=== PATIENT | male | born 1940 | race Caucasian/White ===

== ENCOUNTER 2023-10-24 11:35 | Emergency (ER) | payer MEDICARE, OTHER, SELFPAY ==
[2023-10-24] VITALS (11 sets, daily range): BP systolic 123–162; BP diastolic 66–101; PULSE 62–76; BMI 30.8
--- NOTE | 2023-10-24 12:19 | ED.GENMED ---
History of Present Illness
<Belgica Black PA-C - Last Filed: 10/24/23 16:57>
General
Chief Complaint: Dizziness
Source: patient
Exam Limitations: none
Time Seen by Provider: 10/24/23 12:17
Nursing documentation reviewed up to this point in time: agreed with
Travel History
Have you had any contact with someone who has COVID-19?: No
Do you have any symptoms of coronavirus? Fever > 100 degrees, chills, cough, shortness of breath, sore throat, loss of taste or smell, muscle aches, or headache?: No
History of Present Illness
History of Present Illness:
This is a 83 y/o male with a PMH of afib, hypertension, hyperlipidemia presenting emergency department today with dizziness/lightheadedness. Patient states that he has had this sensation for the past few weeks. Usually, this sensation will last
for few hours or a day and go away on its own. Patient states at this time, the sensation has not gone away on its own. Patient denies any sensation of the room spinning, any visual changes. Patient denies any positional component to his
symptoms. Patient states that he feels okay at rest but if he stands up or moves around the symptoms will get worse. Patient states that he is able to walk without any difficulty. Patient denies any nausea or vomiting, chest pain, shortness of
breath. Patient states that he did have a fall in which he hit his head a few months ago. Patient denies any loss of consciousness. Patient does not take any blood thinners.
Past History
<Belgica Black PA-C - Last Filed: 10/24/23 16:57>
Past History
ED Past Medical History: Arrthythmia, HTN and Hypercholesterolemia
ED Past Surgical History: Cardiac (Cardiac ablation), Orthopedic and Tonsilectomy
Patient has exhibited threatening behavior?: No
PSI?: No
Social History
Tobacco: Non-smoker
Alcohol: Occasional
Drug: None
Personal:
Living: with family
Employment: Employed
Family History
Family History: Other (reviewed and noncontributory)
Review of Systems
<Belgica Black PA-C - Last Filed: 10/24/23 16:57>
Review of Systems
All Other Systems: ROS reviewed and negative except as documented in HPI and ROS
Phy Exam
<Belgica Black PA-C - Last Filed: 10/24/23 16:57>
Physical Exam
Physical Exam:
General: Patient is well appearing and in no acute distress; non-toxic
Skin: Warm and dry, no rashes or lesions
Head: Normocephalic, atraumatic
Eyes: Sclera non-icteric. EOMs intact. PERRLA.
Cardiac: Regular rate and rhythm, no murmurs, rubs, or gallops
Peripheral Vascular: No lower extremity swelling or edema
Pulm: Normal respiratory effort, no wheezes, rales, or rhonchi
Musculoskeletal: Full range of motion of bilateral upper and lower extremities
Neuro: CN II-XII intact, no focal neurologic deficits. No dysmetria--finger to nose, heel to enriquez testing intact.
Psychiatric: Appropriate mood and affect.
NIH Stroke Score
Level of Consciousness: 0 - Alert
LOC questions: 0-Answers both correctly
LOC Commands: 0-Performs both correctly
Best Gaze: 0-Normal
Visual Wilson: 0=Normal, no visual loss
Facial palsy: 0=Normal, symmetrical
Motor - Right Arm: 0=No drift 10 seconds
Motor - Left Arm: 0=No drift 10 seconds
Motor - Right Le-No drift 5 seconds
Motor - Left Le-No drift 5 seconds
Limb Ataxia: 0-Absent
Sensation: 0-Normal
Best Language: 0-No aphasia
Dysarthria: 0-Normal
Extinction and Inattention: 0-No abnormality
Total Score:: 0
Course
<Belgica Black PA-C - Last Filed: 10/24/23 16:57>
Orders/Labs/Results
Orders:
Orders
10/24/23 11:39
EKG [Electrocardiogram (*1)] Urgent
Reason for Study: Vertigo / Dizzy
EKG- Treatment ONCE
10/24/23 12:23
Orthostatic VS- Treatment ONCE
10/24/23 12:42
Complete Blood Count/With Diff Urgent
Comprehensive Metabolic Panel Urgent
10/24/23 13:05
CT Head W/o Iv Contrast Urgent
Comment:
Reason For Exam: dizziness
10/24/23 13:33
CARDIOLOGY CONSULT Urgent
Consulting Provider: James Morales
Was physician already notified: Yes
Abnormal Lab Results
10/24/23
12:42
RBC 4.30 L 10^6/uL
(4.70-6.10)
MCH 32.1 H pg
(27.0-31.0)
Absolute Monos (auto) 0.8 H 10^3/uL
(0.1-0.6)
Monocytes % 9.9 H %
(1.7-9.3)
Chloride 109 H mmol/L
(98-107)
10/24/23 12:42
10/24/23 12:42
Vital Signs
Initial and Last Documented VS:
Initial Vital Signs
Temp Pulse Resp BP Pulse Ox
98 F 66 16 158/101 98
10/24/23 11:37 10/24/23 11:37 10/24/23 11:37 10/24/23 11:37 10/24/23 11:37
Last Documented Vital Signs
Temp Pulse Resp BP Pulse Ox
98 F 54 14 138/98 97
10/24/23 11:37 10/24/23 15:27 10/24/23 15:27 10/24/23 15:27 10/24/23 15:27
<Ashkan Cam, DO - Last Filed: 10/24/23 14:09>
Orders/Labs/Results
Orders:
Orders
10/24/23 11:39
EKG [Electrocardiogram (*1)] Urgent
Reason for Study: Vertigo / Dizzy
EKG- Treatment ONCE
10/24/23 12:23
Orthostatic VS- Treatment ONCE
10/24/23 12:42
Complete Blood Count/With Diff Urgent
Comprehensive Metabolic Panel Urgent
10/24/23 13:05
CT Head W/o Iv Contrast Urgent
Comment:
Reason For Exam: dizziness
10/24/23 13:33
CARDIOLOGY CONSULT Urgent
Consulting Provider: James Morales
Was physician already notified: Yes
Abnormal Lab Results
10/24/23
12:42
RBC 4.30 L 10^6/uL
(4.70-6.10)
MCH 32.1 H pg
(27.0-31.0)
Absolute Monos (auto) 0.8 H 10^3/uL
(0.1-0.6)
Monocytes % 9.9 H %
(1.7-9.3)
Chloride 109 H mmol/L
(98-107)
10/24/23 12:42
10/24/23 12:42
Vital Signs
Initial and Last Documented VS:
Initial Vital Signs
Temp Pulse Resp BP Pulse Ox
98 F 66 16 158/101 98
10/24/23 11:37 10/24/23 11:37 10/24/23 11:37 10/24/23 11:37 10/24/23 11:37
Last Documented Vital Signs
Temp Pulse Resp BP Pulse Ox
98 F 54 14 138/98 97
10/24/23 11:37 10/24/23 15:27 10/24/23 15:27 10/24/23 15:27 10/24/23 15:27
<Belgica Black PA-C - Last Filed: 10/24/23 16:57>
MDM/Problems Addressed
Differential Diagnosis Includes:
ddx include symptomatic bradycardia, orthostatic hypotension, BPPV, vestibular neuritis, posterior circulation stroke
MDM/Problems Addressed:
Dizziness, lightheadedness
Chronic conditions affecting care:
A-fib, hypertension, hyperlipidemia
Acute Exacerbation and/or Progression of Chronic Illness:
HTN
<Belgica Black PA-C - Last Filed: 10/24/23 16:57>
*Pulse Oximetry
Patient hypoxic: no
*Critical Care Note
Total Time (30-74mins, 75-104mins- exclusive of procedures): Not Applicable
Data Reviewed
Review of Other/Old Records Reveals: Records (Reviewed previous records, reviewed cardiology consult note from previous visit) and Discharge Summary (Reviewed discharge summary from 05/30/2022)
Source: patient and records
<MARÍA Andrade Last Filed: 10/24/23 16:57>
Patient Management
Escalation/DeEscalation of care consider admission/obs:
This is a 83 y/o male with a PMH of afib, hypertension, hyperlipidemia presenting emergency department today with dizziness/lightheadedness. Patient states that he has had this sensation for the past few weeks. It is not positional in nature.
Emergency department he is well-appearing, and his neurological exam is nonfocal. He has no nausea or vomiting. CT of the head was obtained which was negative for any acute intracranial abnormality. His CBC and CMP are unremarkable. His EKG
demonstrates early beats and some pauses, as well as PACs. Symptoms seem presyncopal in nature. Patient was evaluated in consult by cardiology, who recommended potential permanent pacer indication in the future, but he is holding off for now. He
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 I advised patient to monitor symptoms and return if he has any chest pain, shortness of breath, syncopal
episodes, or any other concerns. Patient aware of plan
ED Attending Note
<Belgica Black PA-C - Last Filed: 10/24/23 16:57>
-
Portions of this chart may have been created with voice recognition software.� Occasional wrong word or��sound alike� substitutions may have occurred due to the inherent limitations of voice recognition software.
<Ashkan Cam DO - Last Filed: 10/24/23 14:09>
ED Attending Note
Patient seen and examined by attending physician: Yes
I performed a history and physical exam of patient and discussed management with resident, I reviewed resident's note and agree with documented findings and plan of care.: Yes
ED Attending Note:
I have reviewed and agree with history and treatment plan by Belgica Black. My exam revealed 83-year-old male with no neurologic deficits. Heart rhythm irregular, monitor and EKG showing junctional rhythm with PVCs and compensatory pauses.
Suspect this is the cause for patient's weakness and lightheadedness. Discussed with Dr. Morales who will see patient in ED.
Discharge Plan
Departure
Patient Disposition: Home (Routine Discharge)
Date of Disposition: 10/24/23
Time of Disposition: 15:05
Patient with high blood pressure during this ER visit?: Yes
Condition: Good
Discharge Problem:
Lightheadedness
Instructions: Bradycardia, Dizziness, BLOOD PRESSURE
Prescriptions:
No Action
multivitamin Tablet
1 tab PO DAILY
docusate sodium 100 mg Capsule
100 mg PO BID Qty: 30 0RF
lisinopril 20 mg Tablet
20 mg PO HS Qty: 1 0RF
aspirin 325 mg Tablet
325 mg PO HS
simvastatin [Zocor] 40 mg tablet
40 mg PO HS
doxazosin [Cardura] 2 mg tablet
2 mg PO HS
Referrals:
Glen Lomas MD [Family Provider] -
Activity Restrictions/Additional Instructions:
Please call Dr. Tai's office to make a follow up appointment for next week.
Please return to the emergency department should you experience chest pain, shortness of breath, fainting spells, loss of consciousness, headache, confusion, difficulty speaking, numbness or tingling on one side the body, any other concerning signs
or symptoms to you.
Interventions
Interventions:
*Risk Screen - Suicide Last Done: 10/24/23 11:50
*General Assessment Last Done: 10/24/23 11:50
*Neglect/Abuse Screening Last Done: 10/24/23 11:50
ED- Fall Risk Assessment Last Done: 10/24/23 11:50
*ED COVID-19 Vaccine History Last Done: 10/24/23 11:50
*Nursing Disposition Last Done: 10/24/23 15:27
ED- Neurological Assessment Last Done: 10/24/23 11:50
ED- Cardiac Assessment Last Done: 10/24/23 11:50
ED Swallowing Screen Last Done: 10/24/23 11:50
Discharge Date and Time
Discharge Date/Time: 10/24/23 15:28
Print Language: SOMALI
[2023-10-24 12:57] LABS: % Basophils 0.8 % (0-2); % Eosinophils 1.8 % (0-6); % Immature Granulocytes 0.3 % (0-0.5); % Lymphocytes 38.6 % (20.5-51.1); % Monocytes 9.9 % (1.7-9.3); % Neutrophils 48.6 % (42.2-75.2); Absolute Basophils 0.1 10^3/uL (0-0.2); Absolute Eosinophils 0.1 10^3/uL (0-0.7); Absolute Monocytes 0.8 10^3/uL (0.1-0.6); Absolute Neutrophils 3.8 10^3/uL (1.4-6.5); Hematocrit 39.9 % (39.0-52.0); Hemoglobin 13.8 g/dL (13.0-18.0); Mean Corp Hgb Conc. 34.6 g/dL (33.0-37.0); Mean Corpuscular Hgb 32.1 pg (27.0-31.0); Mean Corpuscular Volume 92.8 fL (80.0-94.0); Mean Platelet Volume 8.9 fL (7.4-10.4); Nucleated Red Blood Cells % 0 % (-); Platelet Count 227 10^3/uL (130-400); Red Cell Dist. Width 13.7 % (11.5-14.5); White Blood Cell Count 7.9 10^3/uL (4.8-10.8)
[2023-10-24 13:26] LABS: ALT (SGPT) 25 U/L (0-50); AST (SGOT) 23 U/L (17-59); Albumin 3.8 g/dl (3.5-5.0); Alkaline Phosphatase 57 U/L (38-126); Blood Urea Nitrogen 17 mg/dl (9-20); Calcium 9.5 mg/dl (8.4-10.2); Carbon Dioxide 28 mmol/L (22-30); Chloride 109 mmol/L (98-107); Estimated Creatinine Clearance 79 ml/min; Glucose 83 mg/dl (70-99); Potassium 4.8 mmol/L (3.5-5.1); Sodium 139 mmol/L (135-145); Total Bilirubin 0.5 mg/dl (0.2-1.3); Total Protein 6.4 g/dl (6.3-8.2); eGFR > 60.00
--- NOTE | 2023-10-24 14:33 | CON.CAR ---
Addendum entered and electronically signed by James Morales MD 10/24/23 16:23:
I saw and examined the patient.
The Steamtable Worker's note was reviewed and I agree with the note.
Comment:
GEN: No distress, awake, Ox3
HEENT: supple, anicteric, mmm
LUNGS: CTA, no wheezes/rales
CV: Reg, S1/S2, 1/6 syst LSB, no gallop
ABD: soft, BS+, NT/ND
EXT: No edema
NEURO: Gross non-focal
SKIN: No rash
Plan:
He has a past medical history of paroxysmal atrial fibrillation status post PVI x 2, hypertension hyperlipidemia who presents with multiple episodes of dizziness. These episodes occur randomly and have occurred with more frequency. They do not
seem positional. They do not seem exertional. He has no chest pains or shortness of breath. EKG with sinus rhythm with PACs with occasional junctional escape beats. On telemetry he also has episodes of brief atrial tachycardia and sinus
bradycardia.
His blood pressure is overall stable and lab work is unremarkable including electrolytes.
I had a lengthy discussion with him. His orthostatic vital signs are also negative. His blood pressure is even somewhat elevated.
We discussed permanent pacing but he is no clear indication at this time. We agreed to continue to follow him closely. If he has clear symptomatic bradycardia we could consider permanent pacing. He likely would be a candidate for adding low-dose
beta-dashawn with his premature beats and atrial tachycardia with a permanent pacemaker. For now we will check a 7-day monitor and advised him to call if his symptoms are worsened. We will get him set up with follow-up.
Original Note:
Consultation
Consultation Request
Date/Time Consultation Requested: 10/24/23
Date/Time Consultation Performed: 10/24/23
Requesting Provider: Sofia CARTER in ER
Performing Provider: Dr. Morales
Reason for Consultation: Lightheaded, PACs
Medical History
-
History of Present Illness:
Patient came to [facility] today with lightheadedness and was found to have frequent PACs so cardiology has been consulted to see him in the ER. 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 Patient has a h/o paroxysmal Afib with ablations in 2005 and 2006. No
documented clinical recurrence of Afib and so he is not anticoagulated. Patient wears an Apple watch and previously reported that he would have periods that his Apple watch registered a HR in the 40s and that he would feel lightheaded, but no tele
strips reviewed. Patient has not worn a monitor in years. Patient says that he has been persistently lightheaded since yesterday. No syncope. No chest pain or SOB. No palpitations. He says that his Apple watch has registered HRs in the 40s and 50s
intermittently since yesterday so he saw his PCP today and was told to come to [facility]. Orthostatic VS in ER were negative. Tele and ECG reviewed by me showed PACs.
PMH:
Paroxysmal Afib
s/p PVI 2005
s/p PVI 2006
Not chronically anticoagulated due to lack of recurrence
HTN
Hyperlipidemia
Past Medical History
Past Medical History: Other (in HPI)
Past Surgical History: Cardiac (PVI 2005 and 2006), Orthopedic and Tonsilectomy
Social History
Alcohol: Other (1-2 drinks four or more times a week)
Drug: None
Personal:
Living: With Family
Employment: Retired
Family History
Family History: CAD
Allergies / Home Medications
Allergy/AdvReac Type Severity Reaction Status Date / Time
Penicillins Allergy Anaphylaxis Verified 10/24/23 11:37
-
tolerates
cefazolin
tetanus toxoid, adsorbed Allergy Sweling Verified 10/24/23 11:37
�Medication �Instructions �Recorded �Confirmed �Type
multivitamin 1 tab PO DAILY Supplement 03/25/22 08/04/22 History
simvastatin 40 mg tablet 40 mg PO HS High cholesterol 03/25/22 08/04/22 History
cetirizine 10 mg tablet (Zyrtec) 10 mg PO HS PRN allergies 04/21/22 08/04/22 History
aspirin 325 mg capsule 325 mg PO HS Blood clot 05/27/22 08/04/22 Rx
prevention/tx #30 caps
docusate sodium 100 mg capsule 100 mg PO BID #30 caps 05/27/22 08/04/22 Rx
doxazosin 2 mg tablet 2 mg PO HS Blood pressure #1 tab 05/27/22 08/04/22 Rx
lisinopril 20 mg tablet 20 mg PO HS Blood pressure #1 tab 05/27/22 08/04/22 Rx
acetaminophen 325 mg tablet 650 mg PO PRN PRN Pain 08/02/22 08/04/22 History
(Tylenol)
Review of Systems
-
History Source: Patient and Family ( sitting bedside and helping with HPI)
All other systems: Negative unless noted
Physical Exam
Vital Signs
Temp Pulse Resp BP Pulse Ox
98 F 58 17 123/66 97
10/24/23 11:37 10/24/23 14:14 10/24/23 14:14 10/24/23 13:00 10/24/23 13:30
GEN: NAD. AAOx3
HEENT: EOMI, MMM
LUNGS: CTA B/L, no wheezes or rales
CV: Reg, S1/S2, no murmur
ABD: soft, BS+, NT, ND
EXT: No clubbing, cyanosis, lesions or edema B/L
NEURO: Gross non-focal
SKIN: Warm, dry and pink. No rash
Lab Results
10/24/23 12:42
10/24/23 12:42
Impression / Plan
-
PCP: Dr. Lomas
Cardiology: Dr. Howell
Impression:
Lightheaded
Sinus rhythm with frequent PACs
Paroxysmal Afib
s/p PVI 2005
s/p PVI 2006
Not chronically anticoagulated due to lack of recurrence
HTN
Hyperlipidemia
Echo 05/02/22: EF 60-65%, normal RV size and function, mild MR, no /AI
Plan:
-Patient came to [facility] today with lightheadedness and was found to have frequent PACs so cardiology has been consulted to see him in the ER. 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 Patient has a h/o paroxysmal Afib with ablations in 2005 and 2006. No
documented clinical recurrence of Afib and so he is not anticoagulated. Patient wears an Apple watch and previously reported that he would have periods that his Apple watch registered a HR in the 40s and that he would feel lightheaded, but no tele
strips reviewed. Patient has not worn a monitor in years. Patient says that he has been persistently lightheaded since yesterday. No syncope. No chest pain or SOB. No palpitations. He says that his Apple watch has registered HRs in the 40s and 50s
intermittently since yesterday so he saw his PCP today and was told to come to [facility]. Orthostatic VS in ER were negative. Tele and ECG reviewed by me showed PACs.
-Patient is not orthostatic. Patient is HTN and took his usual doses of lisinopril 20 mg daily and Cardura 2 mg daily last night. Would not change BP meds at this time.
-Tele and ECG reviewed and he has PACs that are frequent at times. Talked with patient that his PACs might be the cause of his symptoms. Patient agreeable to checking a 7 day CAM monitor.
-No high grade heart block seen on tele
-Would not add BB/CCB at this time due to slow HRs at times.
-Patient with known paroxysmal Afib, but he is not chronically anticoagulated due to lack of clinical recurrence of Afib and by his own choice. No changes for now.
--- NOTE | 2023-10-24 14:37 | EDRN ---
the pt became tachycardic in the 140's and then the pts HR dropped to the 30's and then came back up to the 60's in NSR, this RN notified the provider Belgica Black
== END 2023-10-24 15:28 | disposition home or self-care (01) ==
LOC: EMR 11:35
PROVIDERS: Physician Assistant; CONSULT PHYSICIAN Internal Medicine Cardiovascular Disease; EMERGENCY PHYSICIAN Emergency Medicine; FAMILY PHYSICIAN Family Medicine
DX: R42 Dizziness and giddiness (principal); I48.91 Unspecified atrial fibrillation; I10 Essential (primary) hypertension; E78.00 Pure hypercholesterolemia, unspecified; Z79.899 Other long term (current) drug therapy; Z82.49 Family history of ischemic heart disease and other diseases of the circulatory system; Z83.49 Family history of other endocrine, nutritional and metabolic diseases
CPT/HCPCS: 99284; 70450; 80053; 85025; 93005

== ENCOUNTER → 2023-12-29 12:09 | Outpatient (REF) | payer MEDICARE, OTHER, SELFPAY ==
[2023-12-29 13:19] LABS: Urine Albumin Negative (Neg - Trace); Urine Bilirubin Negative (Negative); Urine Character Clear (Clear); Urine Color Yellow; Urine Glucose Negative (Negative); Urine Ketone Negative (Negative); Urine Leukocyte Negative (Negative); Urine Nitrite Negative (Negative); Urine Occult Blood Negative (Negative); Urine Urobilinogen Negative (Neg - 1+); Urine pH 6.5 (5.0-9.0)
[2023-12-29 13:25] LABS: % Immature Granulocytes 0.2 % (0-0.5); % Lymphocytes 36.5 % (20.5-51.1); % Monocytes 8.9 % (1.7-9.3); % Neutrophils 53.4 % (42.2-75.2); Absolute Basophils 0.1 10^3/uL (0-0.2); Absolute Monocytes 0.7 10^3/uL (0.1-0.6); Absolute Neutrophils 4.4 10^3/uL (1.4-6.5); Hematocrit 41.3 % (39.0-52.0); Hemoglobin 14.4 g/dL (13.0-18.0); Mean Corp Hgb Conc. 34.9 g/dL (33.0-37.0); Mean Corpuscular Hgb 32.3 pg (27.0-31.0); Mean Corpuscular Volume 92.6 fL (80.0-94.0); Mean Platelet Volume 8.9 fL (7.4-10.4); Nucleated Red Blood Cells % 0 % (-); Platelet Count 266 10^3/uL (130-400); Red Blood Cell Count 4.46 10^6/uL (4.70-6.10); Red Cell Dist. Width 12.7 % (11.5-14.5); White Blood Cell Count 8.2 10^3/uL (4.8-10.8)
[2023-12-29 13:50] LABS: ALT (SGPT) 27 U/L (0-50); AST (SGOT) 25 U/L (17-59); Alkaline Phosphatase 73 U/L (38-126); Blood Urea Nitrogen 18 mg/dl (9-20); Calcium 9.4 mg/dl (8.4-10.2); Carbon Dioxide 24 mmol/L (22-30); Chloride 106 mmol/L (98-107); Glucose 95 mg/dl (70-99); HDL Cholesterol 64 mg/dl; LDL Cholesterol, Calculated 112 mg/dl; Potassium 4.9 mmol/L (3.5-5.1); Sodium 136 mmol/L (135-145); Total Cholesterol 185 mg/dl (50-199); Total Protein 6.6 g/dl (6.3-8.2); Triglyceride 47 mg/dl (10-149); Very Low Density Lipoprotein 9 mg/dl (0-30); eGFR > 60.00
== END ==
LOC: REG 12:09
PROVIDERS: ATTENDING PHYSICIAN Family Medicine
DX: E78.5 Hyperlipidemia, unspecified (principal); I10 Essential (primary) hypertension; R42 Dizziness and giddiness
CPT/HCPCS: 36415; 80053; 80061; 81003; 85025

== ENCOUNTER 2024-01-01 03:41 | Inpatient (IN) | payer MEDICARE, OTHER, SELFPAY ==
[2023-12-31 22:52] VITALS: BP 159/103
--- NOTE | 2023-12-31 23:08 | ED.GENMED ---
History of Present Illness
<DAMARI Solo - Last Filed: 01/01/24 02:32>
General
Chief Complaint: Abdominal Symptoms
Source: patient
Exam Limitations: none
Time Seen by Provider: 12/31/23 22:58
History of Present Illness
History of Present Illness:
This is a 83 year old male that comes in with c/o constipation and abd pain. States that he has been constipated for the past 3 days. States that know he has this hernia that popped out and he has lower abd pain. States that he has tried Dulcolax,
Glycerin suppository, hot tea and prunes. Nothing is working. State that he was also dizzy. Denies any fever, chills, chest pain, SOB, nausea, vomiting, diarrhea, headache, urinary burning.
Past History
<DAMARI Solo - Last Filed: 01/01/24 02:32>
Past History
ED Past Medical History: Arrthythmia (Atrial fib), HTN, Hypercholesterolemia and Other (Dizziness, Constipation, )
ED Past Surgical History: Cardiac (Cardiac ablation), Orthopedic (Left knee replacement), Tonsilectomy and Other (Sinus surgery)
Patient has exhibited threatening behavior?: No
PSI?: No
Social History
Tobacco: Former smoker
Alcohol: Occasional
Drug: None
Personal:
Living: with family
Employment: Employed
Family History
Family History: Other (reviewed and noncontributory)
Review of Systems
<DAMARI Solo - Last Filed: 01/01/24 02:32>
Review of Systems
All Other Systems: ROS reviewed and negative except as documented in HPI and ROS
Constitutional: Reports no symptoms; Denies fever or chills
EENT: Reports no symptoms
Respiratory: Reports no symptoms; Denies cough or trouble breathing
Cardiac: Reports no symptoms; Denies chest pain
ABD/GI: Reports abdominal pain and constipated; Denies nausea, vomiting or diarrhea
: Reports no symptoms; Denies dysuria, frequency or urgency
Musculoskeletal: Reports no symptoms
Skin: Reports no symptoms
Neurological: Reports dizzy; Denies headache
Psychiatric: Reports no symptoms
Phy Exam
<DAMARI Solo - Last Filed: 01/01/24 02:32>
General Physical Exam
General Presentation: mild distress
General age: appears stated age
General Skin: warm and dry
General Habitus: elderly
General Mental: alert
General Hydration: appears well hydrated
ENT Exam
ENT Exam: TM's normal, pharynx normal and neck supple
Eye Exam
Eye Exam: EOMI
Cardiovascular Exam
Cardiovascular Exam: regular rate/rhythm, no edema and normal peripheral pulses
Pulmonary Exam
Pulmonary Exam: lungs clear, no respiratory distress, no rales, chest non tender, no crackles, no rhonchi, no wheezing and no cough
Gastrointestinal Exam
Gastrointestinal Exam: no pulsatile mass, tender (LLQ hard palpable mass, Attempted to reduce without success. ) and other (Hypoactive bowel sounds)
Musculoskeletal Exam
Musculoskeletal Exam: full ROM and no edema
Skin Exam
Skin Exam: normal color, warm/dry, no rash and no petechia
Psychiatric Exam
Psychiatric Exam: normal mood/affect
Course
<DAMARI Solo - Last Filed: 01/01/24 02:32>
Orders/Labs/Results
Orders:
Orders
12/31/23 23:06
Complete Blood Count/With Diff Urgent
Comprehensive Metabolic Panel Urgent
Lactic Acid Urgent
0.9% Sodium Chloride 1000 ml [Nss] 1,000 ml IV BOLUS
01/01/24 00:00
CT Abd/pelvis W Iv Cont Urgent
Reason For Exam: genaralized abd pain. LLQ hernia
01/01/24 01:41
Fentanyl Citrate/Pf [Sublimaze] 75 mcg IV NOW STA
01/01/24 01:42
Fentanyl Citrate/Pf [Sublimaze] 100 mcg .ROUTE .STK-MED ONE
01/01/24 02:03
Fentanyl Citrate/Pf [Sublimaze] 50 mcg IV NOW STA
01/01/24 02:21
Fentanyl Citrate/Pf [Sublimaze] 50 mcg IV NOW STA
Abnormal Lab Results
01/01/24
00:25
WBC 11.8 H 10^3/uL
(4.8-10.8)
RBC 4.15 L 10^6/uL
(4.70-6.10)
Hct 37.3 L %
(39.0-52.0)
MCH 32.3 H pg
(27.0-31.0)
Absolute Neuts (auto) 8.0 H 10^3/uL
(1.4-6.5)
Absolute Monos (auto) 1.1 H 10^3/uL
(0.1-0.6)
Sodium 134 L mmol/L
(135-145)
Lactic Acid 0.6 L mmol/L
(0.7-2.0)
Total Protein 6.2 L g/dl
(6.3-8.2)
01/01/24 00:25
01/01/24 00:25
Leukocytosis, Lactic acid normal.
Vital Signs
Initial and Last Documented VS:
Initial Vital Signs
Temp Pulse Resp BP Pulse Ox
99.1 F 74 16 159/103 95
12/31/23 22:52 12/31/23 22:52 12/31/23 22:52 12/31/23 22:52 12/31/23 22:52
Last Documented Vital Signs
Temp Pulse Resp BP Pulse Ox
99.1 F 86 22 181/101 95
12/31/23 22:52 01/01/24 02:05 01/01/24 02:05 01/01/24 02:05 01/01/24 02:05
<Jairo Green MD - Last Filed: 01/01/24 02:25>
Orders/Labs/Results
Orders:
Orders
12/31/23 23:06
Complete Blood Count/With Diff Urgent
Comprehensive Metabolic Panel Urgent
Lactic Acid Urgent
0.9% Sodium Chloride 1000 ml [Nss] 1,000 ml IV BOLUS
01/01/24 00:00
CT Abd/pelvis W Iv Cont Urgent
Reason For Exam: genaralized abd pain. LLQ hernia
01/01/24 01:41
Fentanyl Citrate/Pf [Sublimaze] 75 mcg IV NOW STA
01/01/24 01:42
Fentanyl Citrate/Pf [Sublimaze] 100 mcg .ROUTE .STK-MED ONE
01/01/24 02:03
Fentanyl Citrate/Pf [Sublimaze] 50 mcg IV NOW STA
01/01/24 02:21
Fentanyl Citrate/Pf [Sublimaze] 50 mcg IV NOW STA
Abnormal Lab Results
01/01/24
00:25
WBC 11.8 H 10^3/uL
(4.8-10.8)
RBC 4.15 L 10^6/uL
(4.70-6.10)
Hct 37.3 L %
(39.0-52.0)
MCH 32.3 H pg
(27.0-31.0)
Absolute Neuts (auto) 8.0 H 10^3/uL
(1.4-6.5)
Absolute Monos (auto) 1.1 H 10^3/uL
(0.1-0.6)
Sodium 134 L mmol/L
(135-145)
Lactic Acid 0.6 L mmol/L
(0.7-2.0)
Total Protein 6.2 L g/dl
(6.3-8.2)
01/01/24 00:25
01/01/24 00:25
Vital Signs
Initial and Last Documented VS:
Initial Vital Signs
Temp Pulse Resp BP Pulse Ox
99.1 F 74 16 159/103 95
12/31/23 22:52 12/31/23 22:52 12/31/23 22:52 12/31/23 22:52 12/31/23 22:52
Last Documented Vital Signs
Temp Pulse Resp BP Pulse Ox
99.1 F 86 22 181/101 95
12/31/23 22:52 01/01/24 02:05 01/01/24 02:05 01/01/24 02:05 01/01/24 02:05
<DAMARI Solo - Last Filed: 01/01/24 02:32>
MDM/Problems Addressed
Differential Diagnosis Includes:
Incarcerated hernia, Constipation.
MDM/Problems Addressed:
This is a 83 year old male that comes in with c/o constipation. States that he hasn't had a BM in 3-4 days and now he has this large hernia that popped out. States that he has pain in the left lower abd and has been dizzy.
Will get labs, Give IV fluids and CT scan.
patient was seen by Dr. rGeen and attempted to reduce his Hernia. Patient was given Fentanyl 75mg and then 50mg with some success but unable to totally reduce. Patient is significant amount of pain. Will admit to hospitalist and put surgery on
Consult.
Chronic conditions affecting care:
Constipation
Acute Exacerbation and/or Progression of Chronic Illness:
Constipation
<DAMARI Solo - Last Filed: 01/01/24 02:32>
*Radiology
Radiology exam reviewed: radiology read reviewed (CT night hawk- Left inguinal hernia containing loops of sigmoid colon and small free fluid. Consider correlation with signs or symptoms of strangulation. No bowel obstruction. Moderate stool burden.
Normal gallbladder and appendix. Incidentals: Moderate stool burden. No obstructive uropathy. ) and other (Ct cont- Hepatic hypodensities, too small to characterize. No abdominal aortic aneurysm. No acute osseous abnormality. No acute abnormality
within the visualized lungs. )
*Pulse Oximetry
Patient hypoxic: no
*EKG
Interpreted by ED Provider?: NA
Rate: EKG- N/A
*Land Leasing Examiner Interpretation
Rate: Land Leasing Examiner- N/A
*Critical Care Note
Total Time (30-74mins, 75-104mins- exclusive of procedures): Not Applicable
ED Attending Note
<DAMARI Solo - Last Filed: 01/01/24 02:32>
-
Portions of this chart may have been created with voice recognition software.� Occasional wrong word or��sound alike� substitutions may have occurred due to the inherent limitations of voice recognition software.
<Jairo Green MD - Last Filed: 01/01/24 02:25>
ED Attending Note
Patient seen and examined by attending physician: Yes
ED Attending Note:
I have seen and evaluated the patient with a [id number] encounter. I have spoken to the advance practicer provider and involved in the medical history, the physical exam, medical decision making.
Evaluation and management service: agree unless noted differently below.
Results interpretation: agree unless noted differently below.
Focused HPI: 83-year-old male presents with constipation and a left inguinal mass which is painful. He thinks that he started to notice swelling in the left groin due to straining on toilet from constipation.
Physical exam: Awake and alert. Abdomen mild diffuse tenderness; large firm left inguinal hernia.
Medical Decision Makin-year-old male presents with incarcerated left inguinal hernia new onset in the setting of constipation and straining on toilet. CT shows incarcerated hernia, no hard signs of strangulation and lactate is normal, abdomen
nontender, do not suspect strangulated hernia. Overlying skin appears normal. Multiple attempts at bedside in the emergency room to reduce�patient placed in Trendelenburg, area was iced, given pain control but unable to fully reduce hernia. Admit
for surgical consultation.
Discharge Plan
Departure
Patient Disposition: Admit
Date of Disposition: 01/01/24
Time of Disposition: 02:28
Admit to: Med/Surg
Presentation/result/management discussed w/ accepting MD/DO: Hospitalist
Patient with high blood pressure during this ER visit?: Yes
Condition: Good
Covid-19: Not Applicable
Discharge Problem:
Incarcerated left inguinal hernia
Prescriptions:
No Action
multivitamin Tablet
1 tab PO DAILY
Rx Instructions:
Multivitamin with iron
docusate sodium 100 mg Capsule
100 mg PO BID Qty: 30 0RF
lisinopril 20 mg Tablet
20 mg PO HS Qty: 1 0RF
aspirin 325 mg Tablet
325 mg PO HS
simvastatin [Zocor] 40 mg tablet
40 mg PO HS
doxazosin [Cardura] 2 mg tablet
2 mg PO HS
Referrals:
Glen Lomas MD [Family Provider] -
Interventions
Interventions:
*Risk Screen - Suicide Last Done: 12/31/23 22:52
*General Assessment Last Done: 01/01/24 00:47
*Neglect/Abuse Screening Last Done: 12/31/23 22:52
ED- Fall Risk Assessment Last Done: 12/31/23 22:55
*ED COVID-19 Vaccine History Last Done: 01/01/24 00:47
FZ-[id number]-Jlnicxtarx Assessment Last Done: 01/01/24 00:47
Discharge Date and Time
Print Language: SERBIAN
[2024-01-01] VITALS (25 sets, daily range): BP systolic 124–181; BP diastolic 69–101; BMI 32.7; BMI 31.5
[2024-01-01] MEDS: NSS 1000 IV ×2 (00:25→05:14)
[2024-01-01 00:36] LABS: % Basophils 0.6 % (0-2); % Eosinophils 0.1 % (0-6); % Immature Granulocytes 0.3 % (0-0.5); % Lymphocytes 22.1 % (20.5-51.1); % Monocytes 9.2 % (1.7-9.3); % Neutrophils 67.7 % (42.2-75.2); Absolute Basophils 0.1 10^3/uL (0-0.2); Absolute Lymphocytes 2.6 10^3/uL (1.2-3.4); Absolute Monocytes 1.1 10^3/uL (0.1-0.6); Hematocrit 37.3 % (39.0-52.0); Hemoglobin 13.4 g/dL (13.0-18.0); Mean Corp Hgb Conc. 35.9 g/dL (33.0-37.0); Mean Corpuscular Hgb 32.3 pg (27.0-31.0); Mean Corpuscular Volume 89.9 fL (80.0-94.0); Mean Platelet Volume 9.1 fL (7.4-10.4); Nucleated Red Blood Cells % 0 % (-); Platelet Count 240 10^3/uL (130-400); Red Blood Cell Count 4.15 10^6/uL (4.70-6.10); Red Cell Dist. Width 12.6 % (11.5-14.5); White Blood Cell Count 11.8 10^3/uL (4.8-10.8)
[2024-01-01 00:49] LABS: Lactic Acid 0.6 mmol/L (0.7-2.0)
[2024-01-01 00:50] LABS: ALT (SGPT) 23 U/L (0-50); AST (SGOT) 21 U/L (17-59); Albumin 3.7 g/dl (3.5-5.0); Alkaline Phosphatase 69 U/L (38-126); Blood Urea Nitrogen 16 mg/dl (9-20); Carbon Dioxide 23 mmol/L (22-30); Chloride 106 mmol/L (98-107); Glucose 99 mg/dl (70-99); Potassium 4.1 mmol/L (3.5-5.1); Sodium 134 mmol/L (135-145); Total Bilirubin 0.7 mg/dl (0.2-1.3); Total Protein 6.2 g/dl (6.3-8.2); eGFR > 60.00
[2024-01-01] MEDS: SUBLIMAZE 75 MCG IV (01:43)
[2024-01-01] MEDS: SUBLIMAZE 50 MCG IV ×2 (02:13→02:22)
--- NOTE | 2024-01-01 03:18 | HPS.HSE ---
Family Physician
-
Family Physician: Glen Lomas
Chief Complaint
-
abdominal pain and constipation
History of Present Illness
83M HX Constipation, HTN, HLD , HXPrx AF on full dose ASA daily seen at ER for evalaution of constipation and abd pain
Constipation
- acute chornic
- last BM 4 days ago
- No yields with Dulcolax, Glycerin suppository, hot tea and prunes.
- Known HX left inguinal hernia popped out form straining
- asociated with abdominal pain
- Denied vomiting
Medical History
Past Medical History
Past Medical History: Reports Arrhythmia (Prx AF ), HTN, Hypercholesterolemia and Other (constipation )
Past Surgical History: Reports Tonsilectomy
Additional Past Surgical History:
Cardiac ablation
Left knee replacement
Sinus surgery
Social History
Tobacco: Former Smoker
Alcohol: Occasional
Drug: None
Personal:
Living: With Family
Family History
Family History: Not pertinent
Allergies / Home Medications
Allergies reflects when Allergies were last updated in [facility] [employer].
Home Medications with original date entered in [employer]
Allergy/Medication List:
Allergies
Allergy/AdvReac Type Severity Reaction Status Date / Time
Penicillins Allergy Anaphylaxis Verified 12/31/23 22:52
-
tolerates
cefazolin
tetanus toxoid, adsorbed Allergy Sweling Verified 12/31/23 22:52
Home Medications
multivitamin 1 tab PO DAILY Supplement 03/25/22
docusate sodium 100 mg capsule 100 mg PO BID #30 caps 05/27/22
lisinopril 20 mg tablet 20 mg PO HS Blood pressure #1 tab 05/27/22
aspirin 325 mg tablet 325 mg PO HS 10/24/23
doxazosin 2 mg tablet (Cardura) 2 mg PO HS 10/24/23
simvastatin 40 mg tablet (Zocor) 40 mg PO HS 10/24/23
Review of Systems
-
Constitutional: Reports No Symptoms
EENT: Reports No Symptoms
Respiratory: Reports No Symptoms
Cardiac: Reports No Symptoms
Abdomen/GI: Reports Abdominal Pain, Nausea, Vomiting and Other (Left inguinal hernia popped out form straining )
: Reports No Symptoms
Musculoskeletal: Reports No Symptoms
Skin: Reports No Symptoms
Neurological: Reports No Symptoms
Endocrine: Reports No Symptoms
Hematologic/Lymphatic: Reports No Symptoms
Psych: Reports No Symptoms
Physical Exam
Vital Signs
Vital Signs
Temp Pulse Resp BP Pulse Ox
99.1 F 74 18 150/93 95
12/31/23 22:52 01/01/24 02:31 01/01/24 02:31 01/01/24 02:31 01/01/24 02:31
Physical Exam
General: No Apparent Distress, Comfortable and Conversant; No Pain
HEENT: NormoCephalic, Anicteric and Moist mucous membranes
Respiratory: Clear; No Wheezes, Rales or Rhonchi
Cardiac: S1/S2 and Regular Rhythm; No Murmur
Breast: Deferred by me
GI: Soft, Non Distended, Normal Bowel Sounds (hypoactive ) and Other (Left inguinal hernia popped out form straining , )
Genito-urinary: Deferred by me
Musculoskeletal: No Edema
Skin: Warm
Neuro: AO x 3
Psych: Calm and Intact Judgment/Insight
Laboratory Results
-
01/01/24 00:25
01/01/24 00:25
Laboratory Results
Lactic Acid 0.6 mmol/L (0.7-2.0) L 01/01/24 00:25
Total Bilirubin 0.7 mg/dl (0.2-1.3) 01/01/24 00:25
AST 21 U/L (17-59) 01/01/24 00:25
ALT 23 U/L (0-50) 01/01/24 00:25
Alkaline Phosphatase 69 U/L (38-126) 01/01/24 00:25
Data Reviewed
-
CT Scan: Discussed with Physician
Lab Data: Labs Reviewed by me
Impression/Plan
-
Reviewed VS: T 99.1 otherwise unremarkable
Data
WCC 11.8
Na 134
[address] AP per night hawk
- Left inguinal hernia containing loops of sigmoid colon and small free fluid.
- Consider correlation with signs or symptoms of strangulation.
- No bowel obstruction.
- Moderate stool burden.
- Normal gallbladder and appendix.
- Incidentals: Moderate stool burden. No obstructive uropathy. Hepatic hypodensities, too small to characterize.
- No abdominal aortic aneurysm.
- No acute osseous abnormality.
- No acute abnormality within the visualized lungs
NO PRIOR hospitalist admission:
ASSESSMENT & PLAN
Pending Rx reconciliation
Incarcerated left inguinal hernia
Nl LA
- partial reduction of incarcerated LIH by ER AP and and ER attd with Fentanyl 75mg and then 50mg
- Clear and IVF
- IV Dilaudid PRN
- IV Ant emetics PRN
- GS consulted
Acute on chr Constipation
CT POS for moderate stool burden
- Fecal softener like Colace
- Rectal fleet enema
- await GS evaluation as above
Essential HTN
- cont Lisinopril
HX Prx AF on full dose ASA
DVT Px: SCD
Code: Full code
IP MS
[2024-01-01] MEDS: FLEET PHOSPHATE ENEMA-ADULT 135 ML RECTAL (05:45)
--- NOTE | 2024-01-01 06:10 | PTCARENOTE ---
Pt arrived to 2S via ED stretcher at 0515. Pt was able to ambulate from stretcher to bed. VSS. Pt complains of no pain. IVF infusing 80 ml/hr. head to toe assessment complete. stat enema given. Pts at bedside. Bed in lowest position and locked.
call collazo within reach.
--- NOTE | 2024-01-01 08:41 | W.PN.GS2 ---
Today's Communication / Plan
-
Pt will be taken to the OR for open repair of an incarcerated hernia.
Assessment / Plan
-
Mr. Ley is an 83 M presenting with 4 days of constipation and abdominal pain who has an incarcerated hernia on examination.
1. Incarcerated Hernia
- NPO
- Open hernia repair today.
- Potential bowel resection, potential mesh, based on what is visualized intraoperatively.
- Post operative pain control and Abx.
Subjective Data
-
Date of Service: January 01, 2024
Mr. Ley is an 83 M with no relevant PMHx who is presenting with 4 days of constipation and constant left lower quadrant abdominal pain in the setting of a longstanding hernia. The pain is exacerbated by palpation, and has not been relieved by
laxatives. Patient denies fevers, chills, nausea, vomiting, diarrhea, or urinary symptoms.
Objective Data
-
Intake and Output
12/31/23 01/01/24 01/02/24
06:59 06:59 06:59
Intake Total 160 / 160
Balance 160 / 160
Intake:
IV fluids (Total) 160 / 160
Other:
Number of approximated MODERATE 2
amounts of urine
Vital Signs
Temp Pulse Resp BP Pulse Ox
97.5 F 65 18 151/89 93
01/01/24 07:10 01/01/24 07:10 01/01/24 07:10 01/01/24 07:10 01/01/24 07:10
Lab Results
01/01/24 00:25
01/01/24 00:25
Calcium 9.0 mg/dl (8.4-10.2) 01/01/24 00:25
Total Bilirubin 0.7 mg/dl (0.2-1.3) 01/01/24 00:25
AST 21 U/L (17-59) 01/01/24 00:25
ALT 23 U/L (0-50) 01/01/24:25
Alkaline Phosphatase 69 U/L (38-126) 01/01/24:25
Total Protein 6.2 g/dl (6.3-8.2) L 01/01/24:
Albumin 3.7 g/dl (3.5-5.0) 01/01/24:
Physical Exam
-
General: Afebrile, no acute distress, mildly uncomfortable.
Respiratory: No increased work of breathing.
Abdominal: There is a tender, hard, palpable mass in the LLQ that is nonreducible. The rest of the abdomen is soft and nontender.
Neuro: Alert, oriented.
Psych: Calm, cooperative
--- NOTE | 2024-01-01 10:21 | CON.GS ---
Consultation
-
Date/Time Consultation Performed: 7:30 am January 01 2024
Reason for Consultation: Abdominal Pain, Hernia
Medical History
-
Chief Complaint: Abdominal Pain, Constipation
History of Present Illness:
Mr. Ley is a 83M with no relevant past medical or past surgical history who presents with constipation and abdominal pain x 4 days in the setting of a longstanding inguinal hernia. The pain is exacerbated by palpation, and has not been relieved
by laxatives. Patient denies fevers, chills, nausea, vomiting, diarrhea, or urinary symptoms.
Past Medical History
Past Medical History: Reviewed & Noncontributory
Past Surgical History: Reviewed & Noncontributory
Social History
Tobacco: Former Smoker
Alcohol: Occasional
Personal:
Living: With Family
Family History
Family History: Reviewed & Noncontributory
Allergies / Home Medications
Allergy/AdvReac Type Severity Reaction Status Date / Time
Penicillins Allergy Anaphylaxis Verified 12/31/23 22:52
-
tolerates
cefazolin
tetanus toxoid, adsorbed Allergy Sweling Verified 12/31/23 22:52
�Medication �Instructions �Recorded �Confirmed �Type
multivitamin 1 tab PO DAILY Supplement 03/25/22 01/01/24 History
docusate sodium 100 mg capsule 100 mg PO BID #30 caps 05/27/22 01/01/24 Rx
lisinopril 20 mg tablet 20 mg PO HS Blood pressure #1 tab 05/27/22 01/01/24 Rx
aspirin 325 mg tablet 325 mg PO HS 10/24/23 01/01/24 History
doxazosin 2 mg tablet (Cardura) 2 mg PO HS 10/24/23 01/01/24 History
simvastatin 40 mg tablet (Zocor) 40 mg PO HS 10/24/23 01/01/24 History
Review of Systems
-
History Source: Patient
All other systems: Negative unless noted
A 10 point review of systems was completed, and was negative except as per HPI.
Physical Exam
Vital Signs
Temp Pulse Resp BP Pulse Ox
97.5 F 65 18 151/89 93
01/01/24 07:10 01/01/24 07:10 01/01/24 07:10 01/01/24 07:10 01/01/24 07:10
12/31/23 01/01/24 01/02/24
06:59 06:59 06:59
Actual Weight 96.797 kg
Body Mass Index (BMI) 31.5
Lab Results
01/01/24 00:25
01/01/24 00:25
WBC 11.8 10^3/uL (4.8-10.8) H 01/01/24 00:25
Hgb 13.4 g/dL (13.0-18.0) 01/01/24 00:25
Hct 37.3 % (39.0-52.0) L 01/01/24 00:25
Plt Count 240 10^3/uL (130-400) 01/01/24 00:25
Abs Immat Gran (auto) 0.0 10^3/uL (0-0.05) 01/01/24 00:25
Neutrophils % 67.7 % (42.2-75.2) 01/01/24 00:25
Physical Exam
General: Well Developed, No Apparent Distress and Other (mild discomfort)
HEENT: Normocephalic and Anicteric
Respiratory: Non Labored Respirations
GI: Other (There is a tender, hard, palpable mass in the LLQ that is nonreducible. The rest of the abdominal exam is normal. )
Genito-urinary: Inguinal Hernia
Skin: Warm and Dry
Psych: Calm
Data Reviewed
-
CT Scan: Report Reviewed by me (CT of the Abdomen and Pelvis that shows a large left inguinal hernia containing a loop of descending/sigmoid colon without bowel wall thickening or overt obstruction. There is a significant amount of stool in the
colonic loop suggestive of decreased motility and mild inflammatory fat stranding.) and Discussed with Patient
Labs: Labs Reviewed by me (WBC 11.8)
Old Records: Reviewed
Assessment / Plan
-
Mr. Ley is an 83M with a noncontributory past medical or past surgical history who is presenting with 4 days of persistent abdominal pain and constipation in the setting of a longer standing inguinal hernia. Physical examination exhibits an
irreducible hard and tender mass in the left lower quadrant/left suprapubic area and CT scan is suggestive of mild inflammation around this bowel loop but no bowel wall thickening or overt obstruction.
1. Incarcerated Inguinal Hernia
- Urgent open operative repair of the hernia with possible bowel resection or mesh repair of the hernia, dependent on visualized findings intraoperatively.
- Continue NPO
- Postoperative Abx and pain control
- Continue to follow WBC
--- NOTE | 2024-01-01 12:13 | W.SUR.PREOP ---
Pre-Operative Surgical Note
-
I have examined this patient prior to the performance of the scheduled procedure.
The patient's condition is unchanged from the time of the current History and
Physical and the patient is able to undergo the scheduled procedure.
--- NOTE | 2024-01-01 12:14 | W.IMMPOSTOP ---
Surgical Immed Post Op Note
-
Primary Surgeon: Barrett Lopez MD
Assisting Surgeon: None
Assistants:
AJCKELIN Levy
Khalida Flynn MD PGY1
Pre-op Diagnosis: Incarcerated left inguinal hernia
Post-op Diagnosis: Same
Procedure Performed: Open incarcerated left inguinal hernia repair with mesh.
Anesthesia Type: General
Specimen / Cultures: Left inguinal hernia sac and cord lipoma
Estimated Blood Loss: 37 cc
Complications: None
Operative Findings: Incarcerated left scrotal inguinal hernia containing sigmoid colon which was densely adherent to the hernia sac concerning for a sliding component. Large stool concretions had to be manually palpated distally in order to reduce
the colon and hernia sac. Hernia sac ligated with 2-0 silk suture. Small cord lipoma identified and removed. No direct component. Vas deferens and testicular vessels identified and preserved. A genital branch of the genitofemoral nerve
identified and preserved. An ilioinguinal nerves were not identified. The floor was reinforced with a 3 x 6 inch Bard standard weight mesh in a standard Carlos/tension-free repair.
POST OP PLAN:
Imaging: None
Labs: Routine AM
Diet: Okay for clears, will plan for GI soft tomorrow pending clinical course.
Analgesia: Tylenol 650mg q6 Stevan, Dayami 5mg q6 PRN, Dilaudid 0.5mg q2h PRN
Neuro/vascular checks: q4h
AC/AP: Hold Therapeutic AC, Ok for DVT PPx
Activity: Ad Jaince
Wound/Incisions/Drains: Routine, ice pack, briefs/compression underwear.
Abx: None
Dispo: RNF, anticipate discharge home tomorrow pending clinical course.
--- NOTE | 2024-01-01 12:27 | CM ---
Initial assessment completed with patient's . Patient was in OR. Patient and live in a 2 story home with basement, B/B on 2nd and 1/2 bath on 1st, 6 steps to enter. Patient has several SPC in home but does not use, no in-home services.
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 No psychiatric hospitalizations. Pharmacy is [facility] in [place] and PCP is Dr. Paddy Petersen. Anticipate no needs at discharge.
[2024-01-01] MEDS: ZOFRAN 4 MG IV (13:16)
[2024-01-01] MEDS: COMPAZINE 5 MG IV (13:33)
--- NOTE | 2024-01-01 14:38 | PTCARENOTE ---
pt received from pacu back into room 2107. pt drowsy, arouses to voice. pt forgetful to place and time. reoriented easily. at bedside. SR/SB on telemetry with pacs heart rate 50-70s. 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 pt denies
nausea at this time. hypoactive bowel sounds. Pt has not voided, bladder scanned- 18 ml. IVF infusing at 80 ml/hr.
--- NOTE | 2024-01-01 15:05 | W.PN.HOSP.TC ---
Today's Communication/Plan
-
continue current care
Assessment / Plan
Assessment / Plan
Gen-AAOx3, NAD
HEENT-NC, AT, anicteric
Neck-supple, no JVD
CV-reg, no M
Lungs-clear
Abd-soft, NT, ND, left inguinal wound clean
Ext-no edema
Neuro-grossly nonfocal
Incarcerated left inguinal hernia - stable after open repair with mesh 01/01/24. Diet per surgical service (clears ordered).
Hyponatremia - monitor for now.
Parox Atrial Fib - on aspirin at home.
Essential HTN - stable.
Hyperlipidemia - on Zocor.
Obesity due to excess calories
Full code
Anticipated Discharge: Within 24 hours
Subjective/Interval History
-
Date of Service: January 01, 2024
Patient seen/examined. No complaints.
Objective Data
-
Vital Signs:
Vital Signs
Temp Pulse Resp BP Pulse Ox
97.9 F 74 20 148/85 97
01/01/24 14:30 01/01/24 14:30 01/01/24 14:30 01/01/24 14:30 01/01/24 14:30
I&O
12/31/23 01/01/24 01/02/24
06:59 06:59 06:59
Intake Total 160 / 160 100 / 100
Output Total 300 / 300
Balance 160 / 160 -200 / -200
Review of Systems
-
History Source: Patient
All other systems: Reviewed and negative
--- NOTE | 2024-01-01 16:03 | OR.RPT ---
Operative Report
Operative Report
Patient Name: Júnior Ley
: 1940
Date of Operation: 01/01/2024
Preoperative Diagnosis: Incarcerated left inguinal hernia
Postoperative Diagnosis: Same
Procedure(s):
Open incarcerated left inguinal Hernia Repair with mesh
Surgeon(s):
Dr. Lopez
Hot Roller(s):
JACKELIN Levy
Khalida Flynn MD PGY1
Anesthesia: General
Estimated Blood Loss: 37 cc
Urine Output: None
Drains/Lines/Implants: 3 x 6 inch Bard Flat Mesh cut to size
Specimens: None
Indication for surgery: This is an 83-year-old male with a known left inguinal hernia who developed acute onset left inguinal pain in the setting of recent bout of straining in the setting of somewhat chronic constipation. He was evaluated in the
ED and noted to have an incarcerated left inguinal hernia containing the sigmoid colon on CT.
Operative Findings: Incarcerated left scrotal inguinal hernia containing sigmoid colon which was densely adherent to the hernia sac concerning for a sliding component. Large stool concretions had to be manually palpated distally in order to reduce
the colon and hernia sac. Hernia sac ligated with 2-0 silk suture. Small cord lipoma identified and removed. No direct component. Vas deferens and testicular vessels identified and preserved. A genital branch of the genitofemoral nerve
identified and preserved. An ilioinguinal nerves were not identified. The floor was reinforced with a 3 x 6 inch Bard standard weight mesh in a standard Carlos/tension-free repair.
Details of the operation:
After induction of general anesthesia, the patient was clipped, prepped and draped in the supine position. A team timeout was performed confirming administration of DVT prophylaxis, IV antibiotics and SCDs. The ASIS and pubic tubercle were marked
and an incision was chosen along the course of a skin line. The skin was anesthestized with Lidocaine. An incision was made through the skin line and dissection carried down through subcutaneous tissue and Radha's fascia. The superficial
epigastric vein was identified and ligated. A Small Clifford wound retractor was used to provide exposure. The hernia was identified and the external oblique fibers were then divided in the direction of travel. The cremasteric fibers were carefully
dissected off of the hernia sac as were the cord structures which were identified medially. The hernia sac was carefully grasped between forceps and divided sharply. There was a fair amount of fluid in the hernia sac. The colon was identified on
the lateral wall. This appeared to be densely adhered to the peritoneum/hernia sac consistent with a sliding component to the hernia. The colon otherwise looked healthy and there was no ischemia or strictures noted. After identifying the
testicular vessels and spermatic cord protecting them, the medial aspect of the hernia sac was opened to the ring. Efforts to reduce the colon were somewhat difficult as the neck of the hernia was still fairly small and there was large stool
concretions which prevented reduction. We also noted a small serosal tear on the colon which was oversewn with interrupted 3-0 Vicryl sutures. The stool concretions were gently passed distally along the colon which allowed successful reduction.
The edges of the hernia sac/peritoneum were clasped together and closed using a silk suture. A cord lipoma was also identified and removed. The external oblique fibers were identified and this was carried down to the shelving edge and the pubic
tubercle. Inferiorly we dissected the external oblique off of the surrounding tissue to free up the viable shelving edge. Aside from the genital branch of the genitofemoral nerve which was preserved the ilioinguinal and iliohypogastric nerves were
not identified. No direct defect was identified.
The floor of the canal was then reconstructed by placing a 6x3 in BARD flat polypropylene mesh trimmed to size and secured it in place with interrupted 0-PDS sutures medially at the pubic tubercle, inferiorly along the inguinal ligament,
laterally/superiorly in the conjoint tendon. A slit was made in the mesh just wide enough to accommodate the cord this was also reapproximated with the PDS suture. Care was taken not to injure or entrap any nerves. There was some raw surface area
oozing noted and so 3 g of Aurbee was used to help assist with hemostasis. The external oblique fibers were then closed using a running 2-0 Vicryl suture. Radha's fascia was then closed with interrupted 3-0 Vicryl suture. The skin was closed in
layers with interrupted 3-0 vicryl deep dermals followed by a running subcuticular 4-0 Monocryl followed by dermabond. The patient returned to the Recovery Room in stable condition. Sponge and instrument counts were correct. No specimens sent to
Pathology.
I was the attending physician and performed the procedure with assistance from the resident and HUMAN RESOURCES BENEFITS SPECIALIST above. I was present for all portions of the case excluding skin closure.
Barrett Lopez MD
[2024-01-01] MEDS: ZESTRIL 20 MG PO (22:13)
[2024-01-01] MEDS: NSS IV (23:20)
[2024-01-02] VITALS (7 sets, daily range): BP systolic 105–148; BP diastolic 69–88
[2024-01-02] MEDS: NSS 1000 IV (05:29)
[2024-01-02 07:13] LABS: % Basophils 0.2 % (0-2); % Immature Granulocytes 0.4 % (0-0.5); % Lymphocytes 15.8 % (20.5-51.1); % Monocytes 10.4 % (1.7-9.3); % Neutrophils 73.2 % (42.2-75.2); Absolute Immature Granulocytes 0.1 10^3/uL (0-0.05); Absolute Lymphocytes 2.2 10^3/uL (1.2-3.4); Absolute Monocytes 1.5 10^3/uL (0.1-0.6); Absolute Neutrophils 10.3 10^3/uL (1.4-6.5); Hemoglobin 12.9 g/dL (13.0-18.0); Mean Corp Hgb Conc. 34.9 g/dL (33.0-37.0); Mean Corpuscular Hgb 32.1 pg (27.0-31.0); Mean Platelet Volume 9.3 fL (7.4-10.4); Nucleated Red Blood Cells % 0 % (-); Platelet Count 238 10^3/uL (130-400); Red Blood Cell Count 4.02 10^6/uL (4.70-6.10); Red Cell Dist. Width 13.1 % (11.5-14.5)
[2024-01-02 07:36] LABS: Blood Urea Nitrogen 12 mg/dl (9-20); Calcium 8.5 mg/dl (8.4-10.2); Carbon Dioxide 21 mmol/L (22-30); Chloride 107 mmol/L (98-107); Estimated Creatinine Clearance 77 ml/min; Glucose 119 mg/dl (70-99); Potassium 4.2 mmol/L (3.5-5.1); Sodium 136 mmol/L (135-145); eGFR > 60.00
[2024-01-02] MEDS: TYLENOL 650 MG PO ×2 (07:51→22:20)
--- NOTE | 2024-01-02 09:24 | W.PN.GS2 ---
Today's Communication / Plan
-
-- ADAT to LRD
-- Pain control: Tylenol and Oxycodone
-- DVT: Lovenox
Assessment / Plan
-
Patient is an 83 yo M p/w incarcerated and partially obstructed LIH containing colon. POD#1 s/p open LIH repair with mesh
Recovering well. No postoperative concerns.
-- ADAT to LRD
-- Pain control: Tylenol and Oxycodone
-- Home medications
-- DVT: Lovenox
-- OOB/ambulate
-- DC when tolerating diet and bowel function returned
Subjective Data
-
Date of Service: January 02, 2024
No major complaints. LEFT groin soreness. Tolerated clears without nausea or vomiting. Reports passing minimal flatus, no BM.
Objective Data
-
Intake and Output
01/01/24 01/02/24 01/03/24
06:59 06:59 06:59
Intake Total 160 / 160 2019
Output Total 400 / 400
Balance 160 / 160 1620 / 1620
Intake:
IV fluids (Total) 160 / 160 2019
Normosol 100 / 100
Output:
Urine, Magallon 300 / 300
Urine, Voided 100 / 100
Other:
Number of approximated SMALL 1
amounts of urine
Number of approximated MODERATE 2 4
amounts of urine
Vital Signs
Temp Pulse Resp BP Pulse Ox
99.5 F 83 20 119/72 100
01/02/24 07:10 01/02/24 07:10 01/02/24 07:10 01/02/24 07:10 01/02/24 07:10
Lab Results
01/02/24 06:23
01/02/24 06:23
Calcium 8.5 mg/dl (8.4-10.2) 01/02/24 06:23
Total Bilirubin 0.7 mg/dl (0.2-1.3) 01/01/24 00:25
AST 21 U/L (17-59) 01/01/24 00:25
ALT 23 U/L (0-50) 01/01/24 00:25
Alkaline Phosphatase 69 U/L (38-126) 01/01/24 00:25
Total Protein 6.2 g/dl (6.3-8.2) L 01/01/24 00:25
Albumin 3.7 g/dl (3.5-5.0) 01/01/24 00:25
Physical Exam
-
Gen: NAD
Abd: soft, obese, NT/ND, non-peritoneal, LEFT groin incision c/d/i - mild ecchymosis, no erythema or drainage, palpable seroma/hematoma, no hernia recurrence appreciated
--- NOTE | 2024-01-02 09:57 | CM ---
Patient seen at bedside with . Patient confirmed no discharge needs at this time. Patient completed IMM and signed form placed on chart. Patient for discharge home today. CM will continue to follow for discharge planning needs.
Plan;home with no needs.
--- NOTE | 2024-01-02 10:33 | W.PN.HOSP.TC ---
Today's Communication/Plan
-
Discharge
Assessment / Plan
Assessment / Plan
Gen-AAOx3, NAD
HEENT-NC, AT, anicteric
Neck-supple, no JVD
CV-reg, no M
Lungs-clear
Abd-soft, NT, ND, left inguinal wound clean
Ext-no edema
Neuro-grossly nonfocal
Incarcerated left inguinal hernia - stable after open repair with mesh 01/01/24. Tolerating low residue diet. Pain controlled.
Hyponatremia -resolved.
Parox Atrial Fib - on aspirin at home.
Essential HTN - stable.
Hyperlipidemia - on Zocor.
Obesity due to excess calories
Full code
Dispo -can discharge home today if okay with surgical service. Outpatient follow-up. updated at the bedside.
31 minutes spent in discharge process.
Anticipated Discharge: Today
Subjective/Interval History
-
Date of Service: January 02, 2024
Patient seen and examined. Feels fine. No complaints. Tolerated breakfast.
Objective Data
-
Labs:
Laboratory Results
01/02/24
06:23
WBC 14.0 H
Hgb 12.9 L
Hct 37.0 L
Plt Count 238
Sodium 136
Potassium 4.2
Chloride 107
Carbon Dioxide 21 L
BUN 12
Creatinine 0.8
Glucose 119 H
Calcium 8.5
Vital Signs:
Vital Signs
Temp Pulse Resp BP Pulse Ox
99.5 F 83 20 119/72 100
01/02/24 07:10 01/02/24 07:10 01/02/24 07:10 01/02/24 07:10 01/02/24 07:10
I&O
07/22/24 07/23/24 07/24/24
06:59 06:59 06:59
Intake Total 160 / 160 2019 / 2019
Output Total 400 / 400
Balance 160 / 160 1620 / 1620
Review of Systems
-
History Source: Patient
All other systems: Reviewed and negative
[2024-01-02] MEDS: ROXICODONE 5 MG PO (14:44)
[2024-01-02] MEDS: DULCOLAX 10 MG RECTAL (14:44)
[2024-01-02] MEDS: LOVENOX 40 MG SC (19:45)
--- NOTE | 2024-01-02 20:25 | W.PN.UPDATE ---
Update Note
Progress Note Update
at 1999, RN noted [employer] patient with continuos dry cough and reported he was exposed to Covid during a home picnic recently. will order Tessalon pearls and Covid test.
At 220 RN notified F[employer], patient with Temp of 101.6. Patient seen and evaluated, noted to be warm, flushed on face. states having dry cough for two weeks, shortness of breath with coughing,Denies chest pain, Denies chills, Voiding without any
difficulties.
Covid negative, will order chest Xray r/o Pneumonia, CBC, Pro-luisa, Chest X-ray
Chest Xray negative, Procalcitonin negative, will order Flu test. Fever 99.0
Na 131, will check BMP in AM
[2024-01-02] MEDS: TESSALON PERLES 100 MG PO (20:43)
[2024-01-02] MEDS: ZESTRIL 20 MG PO (21:12)
[2024-01-02 21:15] LABS: COVID-19 Antigen Negative (Negative)
[2024-01-02] MEDS: LIPITOR 20 MG PO (22:20)
[2024-01-02 22:56] LABS: Hematocrit 36.6 % (39.0-52.0); Hemoglobin 12.9 g/dL (13.0-18.0); Mean Corp Hgb Conc. 35.2 g/dL (33.0-37.0); Mean Corpuscular Hgb 33.1 pg (27.0-31.0); Mean Corpuscular Volume 93.8 fL (80.0-94.0); Platelet Count 220 10^3/uL (130-400); Red Cell Dist. Width 13.1 % (11.5-14.5); White Blood Cell Count 14.2 10^3/uL (4.8-10.8)
[2024-01-02 23:12] LABS: Blood Urea Nitrogen 15 mg/dl (9-20); Calcium 8.7 mg/dl (8.4-10.2); Carbon Dioxide 23 mmol/L (22-30); Chloride 103 mmol/L (98-107); Estimated Creatinine Clearance 77 ml/min; Glucose 115 mg/dl (70-99); Potassium 4.4 mmol/L (3.5-5.1); Sodium 131 mmol/L (135-145); eGFR > 60.00
[2024-01-02 23:26] LABS: Procalcitonin < 0.05 ng/ml (0.0-0.25)
[2024-01-03 08:17] VITALS: BP 141/79
[2024-01-03] MEDS: ROXICODONE 5 MG PO (08:32)
--- NOTE | 2024-01-03 08:52 | W.PN.GS2 ---
Addendum entered and electronically signed by Barrett Lopez MD 01/03/24 10:19:
I saw and examined the patient independently.
The resident's note was reviewed and I agree with the note, assessment and plan except where noted below.
Comment: 83-year-old male postop day 2 from an open left inguinal hernia repair with mesh for incarcerated sigmoid colon. Slightly worse pain and persistent leukocytosis today. Fever overnight, now resolved.
Continue regular diet.
Okay for bowel regimen. Would like him to have a bowel movement prior to discharge.
Will work on mobilization today as well as incentive spirometry.
Scrotal support and ice packs as able.
Original Note:
Today's Communication / Plan
-
Patient is progessing, tolerating diet. Continue to monitor for BM; patient started on Colase and Miralax PRN. Scrotal supports for abdominal soreness. Incentive Spirometry.
Assessment / Plan
-
Patient is an 83 yo M p/w incarcerated and partially obstructed LIH containing colon. POD#2 s/p open LIH repair with mesh.
-- Continue Regular Diet as Tolerated
-- Colase and PRN Miralax for constipation
-- Scrotal Support for Continnued Soreness
-- Incentive spriometry
-- Pain control
-- Home medications
-- DVT: Lovenox
-- OOB/ambulate
-- DC when tolerating diet and bowel function returned
Subjective Data
-
Date of Service: January 03, 2024
Mr. Ley is a 83M is who is POD#2 s/p left inguinal hernia repair for an incarcerated inguinal hernia. The patient states he has some residual soreness in his LLQ, but denies overt pain, nausea, vomiting. Patient has been OOB and ambulating
without difficulty, and states that he tolerated his regular diet without feeling nauseous. He reports passing minimal flatus and has not yet had a BM, but notes that he is normally constipated at his baseline at home as well. Per nursing note, the
patient had a fever of 101.1F last night. Pt denies cloudy urine, burning on urination, productive cough, pain in lower extemities, SOB.
Objective Data
-
Intake and Output
01/02/24 01/03/24 01/04/24
06:59 06:59 06:59
Intake Total 2019 1440 / 1440
Output Total 400 / 400
Balance 1620 / 1620 1440 / 1440
Intake:
Oral fluids 144 144
IV fluids (Total) 2019
Normosol 100 / 100
Output:
Urine, Magallon 300 / 300
Urine, Voided 100 / 100
Other:
Number of approximated SMALL 1
amounts of urine
Number of approximated MODERATE 4 3
amounts of urine
Number of approximated LARGE 2
amounts of urine
Vital Signs
Temp Pulse Resp BP Pulse Ox
99.3 F 84 18 141/79 96
01/03/24 08:17 01/03/24 08:17 01/03/24 08:17 01/03/24 08:17 01/03/24 08:17
Calcium 8.7 mg/dl (8.4-10.2) 01/02/24 22:46
Total Bilirubin 0.7 mg/dl (0.2-1.3) 01/01/24 00:25
AST 21 U/L (17-59) 01/01/24 00:25
ALT 23 U/L (0-50) 01/01/24 00:25
Alkaline Phosphatase 69 U/L (38-126) 01/01/24 00:25
Total Protein 6.2 g/dl (6.3-8.2) L 01/01/24 00:25
Albumin 3.7 g/dl (3.5-5.0) 01/01/24 00:25
Physical Exam
-
General: Afebrile, Comfortable, no acute distress
Respiratory: Normal work of breathing; mild dry cough noted.
Abdominal: Mild to moderate tenderness in the LLQ with no guarding, rebound, or rigidity. The rest of the abdomen is soft and nontender to palpation. The surgical incision is clean, dry, and intact without surrounding erythema.
: There is some mild scrotal swelling.
Psych: Calm, cooperative.
--- NOTE | 2024-01-03 08:55 | W.PN.HOSP.TC ---
Today's Communication/Plan
-
Stop lisinopril
Start losartan
Assessment / Plan
Assessment / Plan
Gen-AAOx3, NAD
HEENT-NC, AT, anicteric
Neck-supple, no JVD
CV-reg, no M
Lungs-clear
Abd-soft, NT, ND, left inguinal wound clean
Ext-no edema
Neuro-grossly nonfocal
Incarcerated left inguinal hernia - stable after open repair with mesh 01/01/24. Tolerating low residue diet. Pain controlled.
Subacute cough -present for the past 4 weeks. Mostly dry. Denies shortness of breath. Chest x-ray clear. COVID and influenza negative. 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 Stop lisinopril. Can use ARB instead. Discussed with patient and .
Postoperative fever - fever noted last night, afebrile this morning. Differential diagnosis for fever includes benign postoperative fever versus possible infection versus other.
Hyponatremia -Labs pending for today.
Parox Atrial Fib - on aspirin at home.
Essential HTN - stable.
Hyperlipidemia - on Zocor.
Obesity due to excess calories
Full code
Dispo -can discharge when cleared by surgical service.
Anticipated Discharge: Within 24 hours
Subjective/Interval History
-
Date of Service: January 03, 2024
Patient seen and examined. Complaining of cough. Denies shortness of breath.
Objective Data
-
Labs:
Laboratory Results
01/02/24 01/03/24
22:46 08:40
WBC 14.2 H Pending
Hgb 12.9 L Pending
Hct 36.6 L Pending
Plt Count 220 Pending
Sodium 131 L Pending
Potassium 4.4 Pending
Chloride 103 Pending
Carbon Dioxide 23 Pending
BUN 15 Pending
Creatinine 0.8 Pending
Glucose 115 H Pending
Calcium 8.7 Pending
Vital Signs:
Vital Signs
Temp Pulse Resp BP Pulse Ox
99.3 F 84 18 141/79 96
01/03/24 08:17 01/03/24 08:17 01/03/24 08:17 01/03/24 08:17 01/03/24 08:17
I&O
01/02/24 01/03/24 01/04/24
06:59 06:59 06:59
Intake Total 2019 1440 / 1440
Output Total 400 / 400
Balance 1620 / 1620 1440 / 1440
Review of Systems
-
History Source: Patient
All other systems: Reviewed and negative
[2024-01-03 09:43] LABS: % Basophils 0.6 % (0-2); % Immature Granulocytes 0.4 % (0-0.5); % Lymphocytes 19.6 % (20.5-51.1); % Monocytes 11.2 % (1.7-9.3); % Neutrophils 68.2 % (42.2-75.2); Absolute Basophils 0.1 10^3/uL (0-0.2); Absolute Immature Granulocytes 0.1 10^3/uL (0-0.05); Absolute Lymphocytes 2.5 10^3/uL (1.2-3.4); Absolute Monocytes 1.4 10^3/uL (0.1-0.6); Absolute Neutrophils 8.6 10^3/uL (1.4-6.5); Hematocrit 36.5 % (39.0-52.0); Hemoglobin 12.7 g/dL (13.0-18.0); Mean Corp Hgb Conc. 34.8 g/dL (33.0-37.0); Mean Corpuscular Hgb 32.5 pg (27.0-31.0); Mean Corpuscular Volume 93.4 fL (80.0-94.0); Mean Platelet Volume 9.4 fL (7.4-10.4); Nucleated Red Blood Cells % 0 % (-); Platelet Count 224 10^3/uL (130-400); Red Blood Cell Count 3.91 10^6/uL (4.70-6.10); Red Cell Dist. Width 12.9 % (11.5-14.5); White Blood Cell Count 12.6 10^3/uL (4.8-10.8)
[2024-01-03] MEDS: COZAAR 25 MG PO (10:19)
[2024-01-03 10:26] LABS: Blood Urea Nitrogen 13 mg/dl (9-20); Calcium 8.5 mg/dl (8.4-10.2); Carbon Dioxide 21 mmol/L (22-30); Chloride 103 mmol/L (98-107); Estimated Creatinine Clearance 77 ml/min; Glucose 100 mg/dl (70-99); Sodium 134 mmol/L (135-145); eGFR > 60.00
[2024-01-03] MEDS: TYLENOL 650 MG PO (14:10)
[2024-01-03] MEDS: MIRALAX 17 GRAMS PO (14:10)
[2024-01-03 14:38] LABS: Phosphorus 1.9 mg/dl (2.5-4.5)
[2024-01-03 16:03] VITALS: BP 108/63
[2024-01-03] MEDS: LOVENOX 40 MG SC (17:09)
[2024-01-03] MEDS: LIPITOR 20 MG PO (20:04)
[2024-01-03 23:14] VITALS: BP 145/85
[2024-01-04 07:36] VITALS: BP 158/84
[2024-01-04] MEDS: COZAAR 25 MG PO (08:08)
[2024-01-04] MEDS: MIRALAX 17 GRAMS PO (08:08)
[2024-01-04] MEDS: TYLENOL 650 MG PO (08:20)
--- NOTE | 2024-01-04 08:52 | W.PN.GS2 ---
Addendum entered and electronically signed by Jovany Urrutia MD 01/04/24 11:49:
Patient seen and examined in follow-up with resident. Agree with documented progress note with additions noted here.
Patient's at bedside.
He reports continued postoperative discomfort/pain in the left lower abdominal wall and inguinal region extending down into the scrotum with associated swelling.
He is ambulating better and pain control improving.
No nausea, no vomiting, tolerating diet.
Passing flatus but no bowel movement.
AFVSS
ABD: Soft, nondistended, tenderness palpation left lower quadrant and down to inguinal region
Left inguinal scrotal edema and ecchymosis but not tensely distended. Likely consistent with component of postoperative edema, induration, typical postoperative seroma/hematoma. Not excessive.
Assessment/plan: 83-year-old male POD #3 status post open left inguinal hernia pair with mesh for acutely incarcerated hernia without strangulation.
Overall doing well with postoperative recovery with improving mobility and postoperative pain control
Will give Dulcolax suppository for bit of stimulant laxative given that he is passing flatus and tolerating dietary advancement
If continues to tolerate p.o. intake okay for discharge later today from surgical standpoint and continue with bowel regimen at home; MiraLAX
Outpatient follow-up with Dr. Lopez in 2 weeks
Original Note:
Today's Communication / Plan
-
Continue to monitor for BM; Dulcolax Suppository once.
Scrotal Supports and Ice packs for scrotal/left inguinal soreness PRN.
Pt can be discharged from a surgical standpoint once he has a BM.
Assessment / Plan
-
POD #3 s/p left inguinal hernia repair with mesh for incarcerated left inguinal hernia
-- Continue Regular Diet as Tolerated
-- Colase and PRN Miralax for constipation
-- Dulcolax Suppository once, monitor for BM
-- Pt was educated to use scrotal supports for scrotal swelling; pain was relieved on placement of supports
-- Ice packs for scrotal and left inguinal swelling PRN
-- Continue Incentive spriometry
-- Pain control
-- Home medications
-- DVT: Lovenox
-- OOB/ambulate
-- DC when tolerating diet and bowel function returned
Subjective Data
-
Date of Service: January 04, 2024
Mr. Ley is an 83M POD #3 s/p left inguinal hernia repair with mesh for incarcerated left inguinal hernia. Patient has no acute complaints this morning, states that his pain is improving overall, but notes some pain and swelling in his scrotum and
left inguinal area. A scrotal support was placed, and the patient felt the pain was relieved. Pt states that he is passing flatus, but has not yet had a BM. He denies fevers, nausea, vomiting, urinary symptoms, or abdominal pain.
Objective Data
-
Intake and Output
01/03/24 01/04/24 01/05/24
06:59 06:59 06:59
Intake Total 1440 / 1440 1160 / 1160
Balance 1440 / 1440 1160 / 1160
Intake:
Oral fluids 1440 / 1440 1160 / 1160
Other:
Number of approximated MODERATE 3 3
amounts of urine
Number of approximated LARGE 2
amounts of urine
Vital Signs
Temp Pulse Resp BP Pulse Ox
99.3 F 79 19 158/84 97
01/04/24 07:36 01/04/24 07:36 01/04/24 07:36 01/04/24 07:36 01/04/24 07:36
Calcium 8.5 mg/dl (8.4-10.2) 01/03/24 08:40
Phosphorus Cancelled 01/03/24 14:03
Total Bilirubin 0.7 mg/dl (0.2-1.3) 01/01/24 00:25
AST 21 U/L (17-59) 01/01/24 00:25
ALT 23 U/L (0-50) 01/01/24 00:25
Alkaline Phosphatase 69 U/L (38-126) 01/01/24:25
Total Protein 6.2 g/dl (6.3-8.2) L 01/01/24:
Albumin 3.7 g/dl (3.5-5.0) 01/01/24:
Physical Exam
-
Afebrile, VSS
General: Resting comfortably in bed, in no acute distress.
Respiratory: Non-labored breathing.
Abdomen: Mild left lower quadrant tenderness to palpation. Left inguinal area is mildly swollen and ecchymotic. Scrotum is mildly swollen and sensitive. The rest of the abdomen is soft, nontender to palpation, with no guarding rebound or rigidity.
Neuro: AOx3
Psych: Calm, cooperative
[2024-01-04 09:32] LABS: % Basophils 0.6 % (0-2); % Immature Granulocytes 0.4 % (0-0.5); % Lymphocytes 28.4 % (20.5-51.1); % Monocytes 10.7 % (1.7-9.3); % Neutrophils 59.9 % (42.2-75.2); Absolute Basophils 0.1 10^3/uL (0-0.2); Absolute Immature Granulocytes 0.1 10^3/uL (0-0.05); Absolute Lymphocytes 3.2 10^3/uL (1.2-3.4); Absolute Monocytes 1.2 10^3/uL (0.1-0.6); Absolute Neutrophils 6.7 10^3/uL (1.4-6.5); Hematocrit 36.6 % (39.0-52.0); Hemoglobin 12.7 g/dL (13.0-18.0); Mean Corp Hgb Conc. 34.7 g/dL (33.0-37.0); Mean Corpuscular Hgb 31.7 pg (27.0-31.0); Mean Corpuscular Volume 91.3 fL (80.0-94.0); Mean Platelet Volume 8.9 fL (7.4-10.4); Nucleated Red Blood Cells % 0 % (-); Platelet Count 247 10^3/uL (130-400); Red Blood Cell Count 4.01 10^6/uL (4.70-6.10); Red Cell Dist. Width 12.6 % (11.5-14.5); White Blood Cell Count 11.2 10^3/uL (4.8-10.8)
[2024-01-04] MEDS: DULCOLAX 10 MG RECTAL (10:10)
--- NOTE | 2024-01-04 11:06 | CM ---
Addendum entered by Ema Desir 01/04/24 13:52:
Patient cleared for discharge and went home
Original Note:
Met with patient and at bedside; Needs to have a bowel movement before he can be discharged
reported that she will transport patient home when stable for discharge
Plan: Discharge to home when cleared for DC
[2024-01-04 11:08] LABS: ALT (SGPT) 21 U/L (0-50); AST (SGOT) 26 U/L (17-59); Albumin 3.6 g/dl (3.5-5.0); Alkaline Phosphatase 80 U/L (38-126); Blood Urea Nitrogen 11 mg/dl (9-20); Calcium 8.9 mg/dl (8.4-10.2); Carbon Dioxide 24 mmol/L (22-30); Chloride 105 mmol/L (98-107); Estimated Creatinine Clearance 77 ml/min; Glucose 97 mg/dl (70-99); Magnesium 2.1 mg/dl (1.6-2.3); Phosphorus 2.1 mg/dl (2.5-4.5); Potassium 4.3 mmol/L (3.5-5.1); Sodium 134 mmol/L (135-145); Total Bilirubin 1.3 mg/dl (0.2-1.3); Total Protein 6.2 g/dl (6.3-8.2); eGFR > 60.00
--- NOTE | 2024-01-04 11:32 | W.PN.HOSP.TC ---
Addendum entered and electronically signed by Luis M Dutta DO 01/04/24 12:54:
Patient had a bowel movement today.
Stable for discharge. Outpatient follow-up.
Original Note:
Today's Communication/Plan
-
Ambulate
Bowel regimen
Assessment / Plan
Assessment / Plan
Gen-AAOx3, NAD
HEENT-NC, AT, anicteric
Neck-supple, no JVD
CV-reg, no M
Lungs-clear
Abd-soft, NT, ND, left inguinal wound clean
Ext-no edema
Neuro-grossly nonfocal
Incarcerated left inguinal hernia - stable after open repair with mesh 01/01/24. Tolerating low residue diet. Pain controlled.
Subacute cough -present for the past 4 weeks. Mostly dry. Denies shortness of breath. Chest x-ray clear. COVID and influenza negative. 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 Lisinopril discontinued, now on losartan.
Postoperative fever - fever noted 01/01 evening, afebrile since. Suspect benign postoperative fever related to cytokine release. Doubt infection. Monitor for now.
Hyponatremia -sodium stable at 134.
Parox Atrial Fib - on aspirin at home.
Essential HTN - stable.
Hyperlipidemia - on Zocor.
Obesity due to excess calories
Full code
Dispo -can discharge when cleared by surgical service. Still waiting for bowel movement. Increase bowel regimen. Encourage ambulation. Discussed with .
Anticipated Discharge: Within 24 hours
Subjective/Interval History
-
Date of Service: January 04, 2024
Patient seen and examined. No complaints. Still no bowel movement. Denies pain.
Objective Data
-
Labs:
Laboratory Results
01/04/24
09:05
WBC 11.2 H
Hgb 12.7 L
Hct 36.6 L
Plt Count 247
Sodium 134 L
Potassium 4.3
Chloride 105
Carbon Dioxide 24
BUN 11
Creatinine 0.8
Glucose 97
Calcium 8.9
Total Bilirubin 1.3
AST 26
ALT 21
Alkaline Phosphatase 80
Vital Signs:
Vital Signs
Temp Pulse Resp BP Pulse Ox
99.3 F 79 19 158/84 97
01/04/24 07:36 01/04/24 07:36 01/04/24 07:36 01/04/24 07:36 01/04/24 07:36
I&O
01/03/24 01/04/24 01/05/24
06:59 06:59 06:59
Intake Total 1440 / 1440 1160 / 1160
Balance 1440 / 1440 1160 / 1160
Review of Systems
-
History Source: Patient
All other systems: Reviewed and negative
--- NOTE | 2024-01-04 12:53 | W.DS.TRANS ---
DC Summary - Needle Grader
-
Discharge Instructions:
Sleep Apnea Risk Intermediate
Discharge Diagnosis/Procedures Left inguinal hernia, lisinopril induced cough
Diet Low Residue
Activity No strenuous activity
Driving Restrictions No driving for 24 hours
Bathing Restrictions OK to Shower
Instructions:
Stand-Alone Forms:
Changes to Home Medications: Yes
Discharge Medications:
DC Medications w/original date entered in [facility]
multivitamin 1 tab PO DAILY Supplement 03/25/22
docusate sodium 100 mg capsule 100 mg PO BID #30 caps 05/27/22
aspirin 325 mg tablet 325 mg PO HS Blood Clot Prevention/Tx 10/24/23
doxazosin 2 mg tablet (Cardura) 2 mg PO HS Blood Pressure 10/24/23
simvastatin 40 mg tablet (Zocor) 40 mg PO HS High Cholesterol 10/24/23
docusate sodium 100 mg capsule 100 mg PO BIDPRN PRN Constipation #0 caps 01/04/24
losartan 25 mg tablet 25 mg PO DAILY #30 tabs 01/04/24
polyethylene glycol 3350 17 gram oral powder packet (HealthyLax) 17 g PO DAILY #0 ea 01/04/24
Home Medication Changes
Stop lisinopril
Pending Results: No
[2024-01-04 12:57] VITALS: BP 140/74
== END 2024-01-04 13:50 | disposition home or self-care (01) | DRG 351 ==
LOC: 2 SOUTH 03:41
PROVIDERS: Clinical Nurse Specialist Family Health; Nurse Practitioner Gerontology; ADMITTING PHYSICIAN Internal Medicine; ATTENDING PHYSICIAN Hospitalist; CONSULT PHYSICIAN Surgery; EMERGENCY PHYSICIAN Emergency Medicine; FAMILY PHYSICIAN Family Medicine
PROC: 0YU60JZ Supplement Left Inguinal Region with Synthetic Substitute, Open Approach (ICD-10-PCS; 2024-01-01)
PROC: 0VBG0ZZ Excision of Left Spermatic Cord, Open Approach (ICD-10-PCS; 2024-01-01)
DX: K40.30 Unilateral inguinal hernia, with obstruction, without gangrene, not specified as recurrent (principal); E87.1 Hypo-osmolality and hyponatremia; Z87.891 Personal history of nicotine dependence; D17.6 Benign lipomatous neoplasm of spermatic cord; I10 Essential (primary) hypertension; J20.9 Acute bronchitis, unspecified; K59.09 Other constipation; R50.82 Postprocedural fever; Z79.82 Long term (current) use of aspirin; Z88.0 Allergy status to penicillin
CPT/HCPCS: 88304; 36415; 71045; 74177; 80048; 80053; 80061; 81003; 83605; 83735; 84100; 84145; 85025; 85027; 87040; 87502; 87811; 96374; 96375; 99285; C1781; Q9967

== ENCOUNTER 2024-06-14 20:22 | Observation (INO) | payer MEDICARE, OTHER, SELFPAY ==
[2024-06-14] VITALS (8 sets, daily range): BP systolic 138–177; BP diastolic 68–111; PULSE 57–70; BMI 31.5; BMI 31.4
--- NOTE | 2024-06-14 13:05 | ED.GENMED ---
ED Provider Triage
<Matthew Lr PA-C - Last Filed: 06/14/24 13:08>
-
Patient seen by provider in Triage?: Seen in Triage
84 yo male presents due to dizziness. Went to and concern for R facial droop thus sent to ED. Pt denies paresthesia, speech or gait difficulty, or weakness. Dizziness now resolved. No CP/SOB
NIH 0 on my eval. No clear facial droop.
Check stroke workup given age and potential transient neuro symptoms
History of Present Illness
<Matthew Lr PA-C - Last Filed: 06/14/24 13:08>
General
Chief Complaint: Dizziness
Time Seen by Provider: 06/14/24 17:44
<Pranay Salas PA-C - Last Filed: 06/14/24 18:53>
General
Source: patient and spouse
History of Present Illness
History of Present Illness:
84-year-old male with past medical history of paroxysmal A-fib presenting to the emergency department for evaluation after he woke up this morning around 6 AM noting he had significant vertiginous symptoms and was unable to get up out of bed due to
the persistent and worsening nature of the symptoms with movement. Patient states that he has chronic lightheadedness that seems to worsen when he goes from sitting to a standing position that he is currently being worked up by with cardiology but
he states today symptoms feel very different from this. He endorses a mild frontal headache and a tingling sensation across the forehead. Patient initially went to urgent care with his and apparently the urgent care was concerned for a
possible right sided facial droop and eye droop however the states she did not feel patient had any of this. She also notes that patient's speech seems normal to her. Patient does note his vertigo is improved presently but still having the
symptoms especially with movement. Patient is not on any anticoagulants but does note that he takes a daily 81 mg aspirin at nighttime. No fevers or recent illnesses. No other concerns presently.
Past History
<Matthew Lr PA-C - Last Filed: 06/14/24 13:08>
Past History
ED Past Medical History: Arrthythmia (Atrial fib), HTN, Hypercholesterolemia and Other (Dizziness, Constipation, )
ED Past Surgical History: Cardiac (Cardiac ablation), Orthopedic (Left knee replacement), Tonsilectomy and Other (Sinus surgery)
Patient has exhibited threatening behavior?: No
PSI?: No
Social History
Tobacco: Former smoker
Alcohol: Occasional
Drug: None
Personal:
Living: with family
Employment: Employed
Family History
Family History: Other (reviewed and noncontributory)
Review of Systems
<Pranay Salas PA-C - Last Filed: 06/14/24 18:53>
Review of Systems
All Other Systems: ROS reviewed and negative except as documented in HPI and ROS
Phy Exam
<Pranay Salas PA-C - Last Filed: 06/14/24 18:53>
Physical Exam
Physical Exam:
GENERAL: Alert , in no apparent distress
HEAD: Normocephalic atraumatic
EYE: pupils equal and reactive, pupils 3 mm, EOMI, faint rightward horizontal nystagmus
NECK: Supple
ENT: o/p clr, mmm.
CARDIAC: Regular rate and rhythm .
LUNGS: Clear breath sounds bilaterally, no acute respiratory distress, no wheezes/rales/rhonchi
NEUROLOGICAL: Alert and oriented, no focal neuro deficits, ambulates without ataxia, no dysmetria, no dysarthria or aphasia, no facial drooping
SKIN: Warm and dry, skin intact.
MUSCULOSKELETAL: No edema, well perfused.
PSYCH: Normal and appropriate interaction.
Scores
<Pranay Salas PA-C - Last Filed: 06/14/24 18:53>
NIH Stroke Score
Level of Consciousness: 0 - Alert
LOC Questions: 0-Answers both correctly
LOC Commands: 0-Performs both correctly
Best Horizontal Gaze: 0-Normal
Visual Wilson: 0=Normal, no visual loss
Facial Palsy: 0=Normal, symmetrical
Motor - Right Arm: 0=No drift 10 seconds
Motor - Left Arm: 0=No drift 10 seconds
Motor - Right Le-No drift 5 seconds
Motor - Left Le-No drift 5 seconds
Limb Ataxia: 0-Absent
Sensation: 0-Normal
Best Language: 0-No aphasia
Dysarthria: 0-Normal
Extinction and Inattention: 0-No abnormality
Total Score:: 0
Heart Failure Risk
Heart Failure Risk Score: Not Applicable
Heart Score for Chest Pain Patients
STEMI patient?: Not applicable
Withdrawal Assessment of Alcohol
Withdrawal Assessment Completed?: Not applicable
Course
<Matthew Lr PA-C - Last Filed: 06/14/24 13:08>
Orders/Labs/Results
Orders:
Orders
06/14/24 13:08
Electrocardiogram (*1) Urgent
Reason for Study: TIA/Stroke
CT Head W/o Iv Contrast Urgent
Comment:
Reason For Exam: TIA/stroke
EKG- Treatment ONCE
06/14/24 13:18
Complete Blood Count/With Diff Urgent
Comprehensive Metabolic Panel Urgent
06/14/24 18:11
Add On- LAB Urgent
Tests Added?: troponin
Meclizine [Antivert] 25 mg PO NOW STA
06/14/24 18:13
Labetalol HCl [Trandate] 10 mg IV NOW STA
06/14/24 18:41
Troponin I Urgent
Comment: NO GREEN TOP IN LAB - PLEASE DRAW
Abnormal Lab Results
06/14/24
13:18
MCH 31.6 H pg
(27.0-31.0)
Absolute Monos (auto) 0.8 H 10^3/uL
(0.1-0.6)
06/14/24 13:18
06/14/24 13:18
Vital Signs
Initial and Last Documented VS:
Initial Vital Signs
Temp Pulse Resp BP Pulse Ox
98.1 F 82 20 176/106 95
06/14/24 13:01 06/14/24 13:01 06/14/24 13:01 06/14/24 13:01 06/14/24 13:01
Last Documented Vital Signs
Temp Pulse Resp BP Pulse Ox
98.1 F 71 20 168/111 95
06/14/24 13:01 06/14/24 17:46 06/14/24 17:46 06/14/24 17:46 06/14/24 17:46
<Pranay Salas PA-C - Last Filed: 06/14/24 18:53>
Orders/Labs/Results
Orders:
Orders
06/14/24 13:08
Electrocardiogram (*1) Urgent
Reason for Study: TIA/Stroke
CT Head W/o Iv Contrast Urgent
Comment:
Reason For Exam: TIA/stroke
EKG- Treatment ONCE
06/14/24 13:18
Complete Blood Count/With Diff Urgent
Comprehensive Metabolic Panel Urgent
06/14/24 18:11
Add On- LAB Urgent
Tests Added?: troponin
Meclizine [Antivert] 25 mg PO NOW STA
06/14/24 18:13
Labetalol HCl [Trandate] 10 mg IV NOW STA
06/14/24 18:41
Troponin I Urgent
Comment: NO GREEN TOP IN LAB - PLEASE DRAW
Abnormal Lab Results
06/14/24
13:18
MCH 31.6 H pg
(27.0-31.0)
Absolute Monos (auto) 0.8 H 10^3/uL
(0.1-0.6)
06/14/24 13:18
06/14/24 13:18
Vital Signs
Initial and Last Documented VS:
Initial Vital Signs
Temp Pulse Resp BP Pulse Ox
98.1 F 82 20 176/106 95
06/14/24 13:01 06/14/24 13:01 06/14/24 13:01 06/14/24 13:01 06/14/24 13:01
Last Documented Vital Signs
Temp Pulse Resp BP Pulse Ox
98.1 F 71 20 168/111 95
06/14/24 13:01 06/14/24 17:46 06/14/24 17:46 06/14/24 17:46 06/14/24 17:46
<Pranay Salas PA-C - Last Filed: 06/14/24 18:53>
MDM/Problems Addressed
Differential Diagnosis Includes:
BPPV, labyrinthitis, cerebellar stroke, hypertensive urgency, electrolyte disturbance
MDM/Problems Addressed:
84-year-old male presenting to the emergency department for evaluation of vertigo with symptom onset upon awakening around 6 AM, symptoms seem to be improved presently however still with symptoms especially with eye movement or head movement.
Patient also persistently hypertensive with a blood pressure 176/106 at triage and a few hours later still remains at 168/111. Workup was initiated in triage and is largely unremarkable. CT of the head performed which shows age-related changes but
no acute abnormalities. Given patient's age, paroxysmal A-fib history and hypertension with continued symptoms I do feel it would be in patient's best interest to be admitted and further evaluated with plan for possible MRI to further evaluate for
cerebellar infarct or other etiology of the vertigo. Will treat with labetalol for patient's hypertension. Plan to admit to hospitalist service.
Chronic conditions affecting care: HTN
Acute Exacerbation and/or Progression of Chronic Illness: HTN
<Pranay Salas PA-C - Last Filed: 06/14/24 18:53>
*Radiology
Radiology exam reviewed: radiology read reviewed
*Pulse Oximetry
Patient hypoxic: no
*EKG
Interpreted by ED Provider?: Yes
Comparison EKG: no changes
Heart Rate: 82
Rate: normal
Rhythm: sinus and PVC's
Interval: first degree heart block
*Critical Care Note
Total Time (30-74mins, 75-104mins- exclusive of procedures): Not Applicable
Data Reviewed
Review of Other/Old Records Reveals: Labs and Records
Source: patient
<Pranay Salas PA-C - Last Filed: 06/14/24 18:53>
Patient Management
Discussion with other providers: Hospitalist
Escalation/DeEscalation of care consider admission/obs:
Hospitalist team accepts for continued evaluation and treatment
ED Attending Note
<Matthew Lr PA-C - Last Filed: 06/14/24 13:08>
-
Portions of this chart may have been created with voice recognition software.� Occasional wrong word or��sound alike� substitutions may have occurred due to the inherent limitations of voice recognition software.
Discharge Plan
Departure
Patient Disposition: Admit
Date of Disposition: 06/14/24
Time of Disposition: 18:14
Presentation/result/management discussed w/ accepting MD/DO: Hospitalist
Discharge Problem:
Vertigo, Hypertension
Prescriptions:
No Action
multivitamin Tablet
1 tab PO DAILY
Rx Instructions:
Multivitamin with iron
docusate sodium 100 mg Capsule
100 mg PO BID Qty: 30 0RF
aspirin 325 mg Tablet
325 mg PO HS
simvastatin [Zocor] 40 mg tablet
40 mg PO HS
doxazosin [Cardura] 2 mg tablet
2 mg PO HS
losartan 25 mg Tablet
25 mg PO DAILY Qty: 30 0RF
docusate sodium 100 mg Capsule
100 mg PO BIDPRN PRN (Reason: Constipation) Qty: 0 0RF
polyethylene glycol 3350 [HealthyLax] 17 gram Powder In Packet
17 g PO DAILY Qty: 0 0RF
Referrals:
NONE,* [Family Provider] -
Interventions
Interventions:
*General Assessment Last Done: 06/14/24 13:01
ED- Neurological Assessment Last Done: 06/14/24 17:59
ED- Cardiac Assessment Last Done: 06/14/24 17:59
Discharge Date and Time
Print Language: URUGUAYAN
[2024-06-14 13:55] LABS: % Basophils 0.9 % (0-2); % Immature Granulocytes 0.2 % (0-0.5); % Lymphocytes 35.6 % (20.5-51.1); % Monocytes 8.8 % (1.7-9.3); % Neutrophils 54.5 % (42.2-75.2); Absolute Basophils 0.1 10^3/uL (0-0.2); Absolute Lymphocytes 3.3 10^3/uL (1.2-3.4); Absolute Monocytes 0.8 10^3/uL (0.1-0.6); Absolute Neutrophils 5.1 10^3/uL (1.4-6.5); Hemoglobin 15.5 g/dL (13.0-18.0); Mean Corp Hgb Conc. 34.4 g/dL (33.0-37.0); Mean Corpuscular Hgb 31.6 pg (27.0-31.0); Mean Corpuscular Volume 91.8 fL (80.0-94.0); Nucleated Red Blood Cells % 0 % (-); Platelet Count 228 10^3/uL (130-400); Red Cell Dist. Width 13.2 % (11.5-14.5); White Blood Cell Count 9.3 10^3/uL (4.8-10.8)
[2024-06-14 14:07] LABS: ALT (SGPT) 27 U/L (0-50); Albumin 4.3 g/dl (3.5-5.0); Alkaline Phosphatase 83 U/L (38-126); Blood Urea Nitrogen 19 mg/dl (9-20); Calcium 9.5 mg/dl (8.4-10.2); Carbon Dioxide 24 mmol/L (22-30); Chloride 105 mmol/L (98-107); Glucose 89 mg/dl (70-99); Potassium 4.4 mmol/L (3.5-5.1); Sodium 139 mmol/L (135-145); Total Bilirubin 1.2 mg/dl (0.2-1.3); Total Protein 7.2 g/dl (6.3-8.2); eGFR > 60.00
[2024-06-14 14:43] LABS: AST (SGOT) 24 U/L (17-59)
[2024-06-14] MEDS: ANTIVERT 25 MG PO (18:44)
[2024-06-14] MEDS: TRANDATE 10 MG IV (18:50)
--- NOTE | 2024-06-14 18:53 | HPS.HSE ---
Family Physician
-
Family Physician: * NONE
Chief Complaint
-
Dizziness
History of Present Illness
Patient is a 84 y/o male past medical history of hypertension, hyperlipidemia, paroxysmal atrial fibrillation who presents with dizziness. Patient reports dizziness began this morning. He reports many episodes of dizziness in the past, and notes
this episode is similar. He reports symptoms are worsen when he stands straight after bending over, and when going from lying to standing position. He denies worsening symptoms when turning his head. His at bedside notes that patient was
complaining of right posterior headache, but patient denies headache at present time and does not recall having a headache. He initially went to urgent care and was referred to the emergency department due to facial droop. Upon arrival to ED no
facial droop was noted. notes she felt his speech was off and lasted for a short time, resolving before their arrival at the urgent care. Patietn denies any numbness, tingling or weakness.
Medical History
Past Medical History
Past Medical History: Reports Other
Additional Past Medical History:
Atrial Fibrillation s/p PVI most recent in 2006 without any documented recurrence
Bilateral Carotid Artery Stenosis
Essential Hypertension
Hyperlipidemia
BPH
Past Surgical History: Reports Other
Additional Past Surgical History:
Tonsillectomy / Adenoidectomy
Sinus Surgery
Bilateral Carpal Tunnel
Left Total Knee Replacement
Left Inguinal Hernia Repair
Social History
Tobacco: Former Smoker (Quit over 40 years ago)
Alcohol: Daily (1 glass of wine nightly)
Family History
Family History: Not pertinent
Allergies / Home Medications
Allergies reflects when Allergies were last updated in [employer].
Home Medications with original date entered in [employer]
Allergy/Medication List:
Allergies
Allergy/AdvReac Type Severity Reaction Status Date / Time
Penicillins Allergy Anaphylaxis Verified 06/14/24 13:01
-
tolerates
cefazolin
tetanus toxoid, adsorbed Allergy Sweling Verified 06/14/24 13:01
Home Medications
docusate sodium 100 mg capsule 100 mg PO BID #30 caps 05/27/22
aspirin 325 mg tablet 325 mg PO HS Blood Clot Prevention/Tx 10/24/23
doxazosin 2 mg tablet (Cardura) 2 mg PO HS Blood Pressure 10/24/23
simvastatin 40 mg tablet (Zocor) 40 mg PO HS High Cholesterol 10/24/23
losartan 25 mg tablet 25 mg PO DAILY #30 tabs 01/04/24
cetirizine 10 mg tablet 10 mg PO DAILYPRN PRN allergies 06/14/24
polyethylene glycol 3350 17 gram oral powder packet (HealthyLax) 17 g PO DAILYPRN PRN constipation 06/14/24
therapeutic multivitamin 1 tab PO DAILY 06/14/24
Review of Systems
-
A 12 point ROS was completed and negative except as noted: Yes
Constitutional: Denies Fever or Chills
Respiratory: Denies Cough or Trouble Breathing
Cardiac: Denies Chest Pain or Palpitations
Abdomen/GI: Denies Abdominal Pain, Nausea, Vomiting or Diarrhea
Neurological: Reports See HPI
Physical Exam
Vital Signs
Vital Signs
Temp Pulse Resp BP Pulse Ox
98.1 F 70 20 182/98 95
06/14/24 13:01 06/14/24 18:50 06/14/24 17:46 06/14/24 18:50 06/14/24 17:46
Physical Exam
General: Comfortable and Conversant
HEENT: Anicteric, Moist mucous membranes and PERRLA (No nystagmus)
Respiratory: Clear and Non Labored Respirations
Cardiac: S1/S2 and Regular Rhythm
GI: Soft and Non Tender
Musculoskeletal: No Clubbing, No Cyanosis and No Edema
Skin: Warm and Dry
Neuro: Awake, Alert, Oriented and No Motor Deficits; No Slurred Speech or Facial Droop
Psych: Calm
Laboratory Results
-
06/14/24 13:18
06/14/24 13:18
Laboratory Results
Total Bilirubin 1.2 mg/dl (0.2-1.3) 06/14/24 13:18
AST 24 U/L (17-59) 06/14/24 13:18
ALT 27 U/L (0-50) 06/14/24 13:18
Alkaline Phosphatase 83 U/L (38-126) 06/14/24 13:18
Data Reviewed
-
CT Scan: Report Reviewed by me
Lab Data: Labs Reviewed by me
Impression/Plan
-
Dizziness, possibly orthostatic - Patient reports frequent episodes of dizziness
-Check orthostatic VS
-Check Brain MRI for completeness but likely to be low yield
Paroxysmal Atrial Fibrillation
-Per outpatient records patient had PVI in 2006 and has not has any documented recurrences on his Apple Watch or 7-Day monitor from October 2023
-Continue aspirin
Essential Hypertension
-Diastolic blood pressure running high in ED for which he was given labetalol - Monitor for response
-Continue losartan
-Continue doxazosin for now but consider stopping if positive orthostatic VS
Hyperlipidemia
-Continue simvastatin
DVT proph: SCDs
Code Status: Full Code
[2024-06-14 19:13] LABS: Troponin I 0.023 ng/ml
--- NOTE | 2024-06-14 19:15 | W.PN.UPDATE ---
Update Note
Progress Note Update
Patient seen in conjunction with DAMARI. I agree with history and physical. I concur with the assessment and plan unless stated otherwise.
Is an 84-year-old male was past medical history significant for proximal atrial fibrillation status post ablation several years ago without recurrence, hypertension, hyperlipidemia and history of recurrent dizziness who presents to the emergency
department with recurrent episode of dizziness today. According to patient and spouse this started when he woke up this morning. It was difficult getting out of bed due to sensation of dizziness. Patient actually reported these as more
lightheadedness. Is never had a syncopal episode. He denied any palpitations. He denied having any chest pain. He feels more dizzy when he goes from a sitting to a standing position. He denies any vision changes. He denies any numbness or
tingling. He was seen for dizziness by urgent care today and they thought they saw a facial droop. This was not noticed by spouse. There was no speech or facial droop was noticed on arrival in the emergency department notable I find a facial
droop on physical exam. He had no other neurological deficits. Patient had Holter monitoring this year which was negative for any fever. He also has continuous monitoring on his watch device which has never picked up any atrial fibrillation. He
is not anticoagulated and is only on aspirin.
In the emergency department he was hypertensive to 182/98, pulse was 69 respiratory 18. ECG showed normal sinus rhythm with a 4 degree AV block at a rate of 82. Troponin is negative. The CBC is completely normal. Electrolytes BUN/creatinine were
also within normal limits. The CT of the head shows no acute findings.
Currently NIHSS equals 0.
Assessment and plan
Dizziness -patient has dizziness is nonvertiginous and sounds more orthostatic versus perhaps secondary to hypertensive episode. He has no focal neurological deficit on exam. ECG shows no evidence of A-fib or any other arrhythmia. Patient suspect
he might be occasionally bradycardic and he does have 1st deg avb. He is not on any beta-blockade.
- admit to tele obs
- check mri w/o contrast in am to rule out central vertigo
- check orthostatic v/s
- if patient is orthostatic can change doxazosin to a CCB
- if not orthostatic likely needs better bp control
- continue aspirin 324 for now, continue statin
- DVT PPX w/ lovenox
Code [facility] - Full Code
[2024-06-14] MEDS: CARDURA 2 MG PO (21:52)
[2024-06-14] MEDS: ASPIRIN 325 MG PO (21:52)
[2024-06-14] MEDS: LIPITOR 20 MG PO (21:53)
[2024-06-14] MEDS: COLACE 100 MG PO (21:54)
--- NOTE | 2024-06-14 22:52 | TRANSFER ---
pt arrived from ED on stretcher accompanied by ED staff and . pt walked from stretcher to bed with his cane brought from home. pt is AAOx3. NIHSS completed due to neurological symptoms with a score of 0. VSS, call collazo within reach, plan of care
ongoing. will continue to monitor.
[2024-06-15] VITALS (8 sets, daily range): BP systolic 119–187; BP diastolic 69–104; PULSE 47–59; O2SAT 94
[2024-06-15 06:48] LABS: Hematocrit 41.2 % (39.0-52.0); Mean Corpuscular Hgb 31.9 pg (27.0-31.0); Mean Corpuscular Volume 93.8 fL (80.0-94.0); Mean Platelet Volume 9.1 fL (7.4-10.4); Platelet Count 213 10^3/uL (130-400); Red Blood Cell Count 4.39 10^6/uL (4.70-6.10); Red Cell Dist. Width 13.3 % (11.5-14.5); White Blood Cell Count 8.7 10^3/uL (4.8-10.8)
[2024-06-15 07:19] LABS: Blood Urea Nitrogen 24 mg/dl (9-20); Carbon Dioxide 24 mmol/L (22-30); Chloride 107 mmol/L (98-107); Estimated Creatinine Clearance 67 ml/min; Glucose 108 mg/dl (70-99); Magnesium 2.3 mg/dl (1.6-2.3); Potassium 4.3 mmol/L (3.5-5.1); Sodium 140 mmol/L (135-145); eGFR > 60.00
[2024-06-15 07:41] LABS: TSH Reflex To Free T4 5.47 uIU/ml (0.47-4.68)
[2024-06-15 08:11] LABS: Free T4 1.01 ng/dl (0.78-2.19)
[2024-06-15] MEDS: COLACE 100 MG PO (08:46)
[2024-06-15] MEDS: COZAAR 25 MG PO ×2 (08:46→15:14)
--- NOTE | 2024-06-15 10:30 | CM ---
CM met with patient to complete IA. Admitted 06/15/2024 via ED with dizziness, facial droop and high BP.
Patient and live in a 2 story home with basement, B/B on 2nd and 1/2 bath on , 6 steps to enter. Patient has several SPC in home but does not use, no hx of SNF of [facility].
Mr. Ley reports being independent and drives.
CM will follow to coordinate discharge planning needs as hospitalization progresses.
Pharmacy: [facility] in [place]
PCP is Dr. Paddy Petersen.
[2024-06-15 11:04] LABS: Vitamin B12 589 pg/ml (239-931)
[2024-06-15] MEDS: APRESOLINE 5 MG IV (16:18)
--- NOTE | 2024-06-15 17:27 | W.PN.HOSP.TC ---
Today's Communication/Plan
-
Blood pressure repeated after increased losartan and hydralazine is better
Will discharge patient on increased dose of losartan with outpatient follow-up with cardiology.
Assessment / Plan
Assessment / Plan
84-year-old male with dizziness also had a right posterior headache went to urgent care was referred to ER due to facial droop also noted that his speech was off
CVS: S1-S2 normal, systolic murmur at apex
Chest: CTA B/L
Abdomen: Soft, NT / Bowel sounds present
Extremities: No edema, normal pulses
ROAD MAKER: Non focal exam
# Dizziness/off-balance/speech abnormality
Orthostatic vital signs negative
MRI of the brain-no acute abnormalities
EKG with first degree AV block and sinus rhythm , troponin negative.
# Paroxysmal atrial fibrillation
Had a PVI in 2016 and has not had any recurrences documented on his Apple Watch or 7-day monitor in October 2023
Currently on aspirin
PACs and junctional rhythm noted. I did run th EKG and monitor by patient's leather heel breaster Dr. Howell Recommended outpatient follow-up
# Hypertension
Continue losartan and doxazosin
Blood pressure was elevated in the ER and was given labetalol
# Hyperlipidemia-continue simvastatin
# Elevated TSH- Normal T4 . Rpt in 6 weeks
# Enlarged prostate-on doxazosin
# Obesity BMP 31
# Ex-smoker
# DVT prophylaxis-Lovenox
# Full code
Discussed with patient and at bedside
Anticipated Discharge: Today
Subjective/Interval History
-
Date of Service: June 15, 2024
Objective Data
-
Labs:
Laboratory Results
06/15/24
06:03
WBC 8.7
Hgb 14.0
Hct 41.2
Plt Count 213
Sodium 140
Potassium 4.3
Chloride 107
Carbon Dioxide 24
BUN 24 H
Creatinine 0.9
Glucose 108 H
Calcium 9.0
Vital Signs:
Vital Signs
Temp Pulse Resp BP Pulse Ox
97.8 F 46 18 156/85 93
06/15/24 15:20 06/15/24 16:39 06/15/24 15:20 06/15/24 16:39 06/15/24 15:20
I&O
06/14/24 06/15/24 06/16/24
06:59 06:59 06:59
Intake Total 240 / 240 720 / 720
Output Total 150 / 150 200 / 200
Balance 90 / 90 520 / 520
--- NOTE | 2024-06-15 17:29 | W.DS.TRANS ---
Addendum entered and electronically signed by Jackelyn Duarte MD 06/15/24 18:25:
Dictation- [id number]
Original Note:
DC Summary - [employer]
-
Discharge Instructions:
Sleep Apnea Risk Intermediate
Discharge Diagnosis/Procedures Dizziness
Hypertension
High cholesterol
Diet 2 Gram Sodium
Activity As tolerated
Driving Restrictions As prior to admission
Blood Work Thyroid function test in 6 weeks
Instructions:
Stand-Alone Forms:
Changes to Home Medications: Yes
Discharge Medications:
DC Medications w/original date entered in [employer]
aspirin 325 mg tablet 325 mg PO HS Blood Clot Prevention/Tx 10/24/23
doxazosin 2 mg tablet (Cardura) 2 mg PO HS Blood Pressure 10/24/23
simvastatin 40 mg tablet (Zocor) 40 mg PO HS High Cholesterol 10/24/23
cetirizine 10 mg tablet 10 mg PO DAILYPRN PRN allergies 06/14/24
polyethylene glycol 3350 17 gram oral powder packet (HealthyLax) 17 g PO DAILYPRN PRN constipation 06/14/24
therapeutic multivitamin 1 tab PO DAILY Supplement 06/14/24
docusate sodium 100 mg capsule 100 mg PO BID Constipation #30 caps 06/15/24
losartan 25 mg tablet 50 mg (2 x 25 mg) PO DAILY Blood pressure #30 tabs 06/15/24
Home Medication Changes
Dose of losartan increased
Pending Results: No
== END 2024-06-15 18:47 | disposition home or self-care (01) ==
LOC: 4 EAST ACU 20:22
PROVIDERS: Physician Assistant; Physician Assistant Medical; ADMITTING PHYSICIAN Internal Medicine; ATTENDING PHYSICIAN Hospitalist; EMERGENCY PHYSICIAN Emergency Medicine
DX: R42 Dizziness and giddiness (principal); I48.0 Paroxysmal atrial fibrillation; R51.9 Headache, unspecified; R20.2 Paresthesia of skin; R29.810 Facial weakness; N40.0 Benign prostatic hyperplasia without lower urinary tract symptoms; I10 Essential (primary) hypertension; G31.9 Degenerative disease of nervous system, unspecified; J32.8 Other chronic sinusitis; I49.3 Ventricular premature depolarization; I49.1 Atrial premature depolarization; R94.6 Abnormal results of thyroid function studies; E66.9 Obesity, unspecified; E78.00 Pure hypercholesterolemia, unspecified; Z87.891 Personal history of nicotine dependence; Z96.652 Presence of left artificial knee joint; Z88.7 Allergy status to serum and vaccine; Z88.0 Allergy status to penicillin; Z79.82 Long term (current) use of aspirin; Z68.31 Body mass index [BMI] 31.0-31.9, adult
CPT/HCPCS: 70450; 70551; 80048; 80053; 82607; 83735; 84439; 84443; 84484; 85025; 85027; 93005; 96374; 97162; 97166; 99285; G0378

== ENCOUNTER 2024-06-29 06:39 | Emergency (ER) | payer MEDICARE, OTHER, SELFPAY ==
[2024-06-29] VITALS (11 sets, daily range): BP systolic 129–185; BP diastolic 64–98; PULSE 70–86; O2SAT 98; BMI 32.1
--- NOTE | 2024-06-29 08:47 | ED.GENMED ---
History of Present Illness
General
Chief Complaint: Dizziness
Source: patient
Exam Limitations: none
Time Seen by Provider: 06/29/24 08:26
History of Present Illness
History of Present Illness:
84-year-old male presents with onset of dizziness last night. He states the dizziness is made worse with position change and turning his head. He denies chest pain. He does have a current Holter monitor on as he has been experiencing bradycardia.
He denies of the lightheaded or passing out sensation. No unilateral numbness or weakness. He denies neck pain or vision change. No recent fever. He notes a subtle fogginess or headache in the front of his head. He is not anticoagulated.
Past History
Past History
ED Past Medical History: Arrthythmia (Atrial fib), HTN, Hypercholesterolemia and Other (Dizziness, Constipation, )
ED Past Surgical History: Cardiac (Cardiac ablation), Orthopedic (Left knee replacement), Tonsilectomy and Other (Sinus surgery)
Patient has exhibited threatening behavior?: No
PSI?: No
Social History
Tobacco: Former smoker
Alcohol: Occasional
Drug: None
Personal:
Living: with family
Employment: Employed
Family History
Family History: Other (reviewed and noncontributory)
Phy Exam
Physical Exam
Physical Exam:
General: Well-appearing male no acute respiratory distress
HEENT: Normocephalic atraumatic pupils equal round reactive to light subtle horizontal nystagmus noted
Heart: Regular rate and rhythm
Lungs: Clear no wheeze
Neurologic exam: Alert and oriented no facial asymmetry dysarthria or aphasia. No drift finger-nose [id number] intact. When performing Amanda-Hallpike and laying flat turning his head to the right he had increased dizziness. There was no increased
dizziness to the left.
Extremities: No cyanosis
Course
Orders/Labs/Results
Orders:
Orders
06/29/24 08:45
CT Head W/o Iv Contrast Urgent
Comment:
Reason For Exam: dizzy
Orthostatic VS- Treatment ONCE
06/29/24 08:46
Electrocardiogram (*1) Urgent
Reason for Study: Vertigo / Dizzy
EKG- Treatment ONCE
06/29/24 08:50
PT Consult [Pt Eval And Treat] Urgent
Treatment: vestibular eval
Activity Level: Ambulate
06/29/24 10:30
Complete Blood Count/With Diff Urgent
Comprehensive Metabolic Panel Urgent
06/29/24 10:44
Meclizine [Antivert] 25 mg PO NOW STA
Abnormal Lab Results
06/29/24
10:30
RBC 4.59 L 10^6/uL
(4.70-6.10)
MCH 31.6 H pg
(27.0-31.0)
Absolute Monos (auto) 0.8 H 10^3/uL
(0.1-0.6)
BUN 22 H mg/dl
(9-20)
06/29/24 10:30
06/29/24 10:30
Vital Signs
Initial and Last Documented VS:
Initial Vital Signs
Temp Pulse Resp BP Pulse Ox
97.5 F 51 21 185/81 98
06/29/24 06:52 06/29/24 06:52 06/29/24 06:52 06/29/24 06:52 06/29/24 06:52
Last Documented Vital Signs
Temp Pulse Resp BP Pulse Ox
97.5 F 79 16 156/69 94
06/29/24 06:52 06/29/24 11:30 06/29/24 10:45 06/29/24 11:25 06/29/24 11:30
MDM/Problems Addressed
Differential Diagnosis Includes:
Dizziness. Consider arrhythmia versus vertigo versus CVA versus orthostasis. Will check labs. EKG pending. CT head pending. Exam
Released initially consistent with possible positional vertigo. Will consult physical therapy for vestibular
*Critical Care Note
Total Time (30-74mins, 75-104mins- exclusive of procedures): Not Applicable
Update Note
Update Note:
Patient feeling better. He was seen by physical therapy. Certainly positive for vertigo. CT negative. He has been ambulatory here to the bathroom and doing well with his cane. I suspect symptoms are related to benign positional vertigo. EKG
shows sinus rhythm with PACs. This was discussed with cardiology as well. No indication for admission. Will provide prescription for vestibular rehab.
ED Attending Note
-
Portions of this chart may have been created with voice recognition software.� Occasional wrong word or��sound alike� substitutions may have occurred due to the inherent limitations of voice recognition software.
Discharge Plan
Departure
Patient Disposition: Home (Routine Discharge)
Date of Disposition: 06/29/24
Time of Disposition: 13:01
Patient with high blood pressure during this ER visit?: No
Discharge Problem:
Vertigo
Instructions: Vertigo (a type of dizziness)
Prescriptions:
No Action
aspirin 325 mg Tablet
325 mg PO HS
simvastatin [Zocor] 40 mg tablet
40 mg PO HS
doxazosin [Cardura] 2 mg tablet
2 mg PO HS
cetirizine 10 mg Tablet
10 mg PO DAILYPRN PRN (Reason: allergies)
therapeutic multivitamin Tablet
1 tab PO DAILY
polyethylene glycol 3350 [HealthyLax] 17 gram powder in packet
17 g PO DAILYPRN PRN (Reason: constipation)
losartan 25 mg Tablet
50 mg PO DAILY Qty: 30 0RF
docusate sodium 100 mg Capsule
100 mg PO BID Qty: 30 0RF
Referrals:
NONE,* [Family Provider] -
Activity Restrictions/Additional Instructions:
Using meclizine as needed at home for dizziness. Follow-up with vestibular rehab. Return if worse otherwise. Continue to follow-up with cardiology as planned
Interventions
Interventions:
*Risk Screen - Suicide Last Done: 06/29/24 06:52
*General Assessment Last Done: 06/29/24 11:38
*Neglect/Abuse Screening Last Done: 06/29/24 11:38
*ED COVID-19 Vaccine History Last Done: 06/29/24 11:38
ED- Neurological Assessment Last Done: 06/29/24 09:44
ED- Cardiac Assessment Last Done: 06/29/24 09:44
ED Swallowing Screen Last Done: 06/29/24 11:15
Discharge Date and Time
Print Language: CAMEROONIAN
[2024-06-29 10:39] LABS: % Basophils 0.6 % (0-2); % Immature Granulocytes 0.2 % (0-0.5); % Lymphocytes 33.9 % (20.5-51.1); % Monocytes 8.6 % (1.7-9.3); % Neutrophils 56.7 % (42.2-75.2); Absolute Basophils 0.1 10^3/uL (0-0.2); Absolute Lymphocytes 3.2 10^3/uL (1.2-3.4); Absolute Monocytes 0.8 10^3/uL (0.1-0.6); Absolute Neutrophils 5.3 10^3/uL (1.4-6.5); Hematocrit 41.9 % (39.0-52.0); Hemoglobin 14.5 g/dL (13.0-18.0); Mean Corp Hgb Conc. 34.6 g/dL (33.0-37.0); Mean Corpuscular Hgb 31.6 pg (27.0-31.0); Mean Corpuscular Volume 91.3 fL (80.0-94.0); Nucleated Red Blood Cells % 0 % (-); Platelet Count 216 10^3/uL (130-400); Red Blood Cell Count 4.59 10^6/uL (4.70-6.10); Red Cell Dist. Width 13.2 % (11.5-14.5); White Blood Cell Count 9.4 10^3/uL (4.8-10.8)
[2024-06-29 10:54] LABS: ALT (SGPT) 25 U/L (0-50); AST (SGOT) 23 U/L (17-59); Albumin 4.1 g/dl (3.5-5.0); Alkaline Phosphatase 79 U/L (38-126); Blood Urea Nitrogen 22 mg/dl (9-20); Calcium 9.2 mg/dl (8.4-10.2); Carbon Dioxide 22 mmol/L (22-30); Chloride 107 mmol/L (98-107); Estimated Creatinine Clearance 77 ml/min; Glucose 92 mg/dl (70-99); Potassium 4.6 mmol/L (3.5-5.1); Sodium 139 mmol/L (135-145); Total Protein 6.8 g/dl (6.3-8.2); eGFR > 60.00
[2024-06-29] MEDS: ANTIVERT 25 MG PO (11:18)
== END 2024-06-29 13:16 | disposition home or self-care (01) ==
LOC: EMR 06:39
PROVIDERS: Physician Assistant; EMERGENCY PHYSICIAN Student in an Organized Health Care Education/Training Program
DX: R42 Dizziness and giddiness (principal); R00.1 Bradycardia, unspecified; I10 Essential (primary) hypertension; I48.91 Unspecified atrial fibrillation; E78.00 Pure hypercholesterolemia, unspecified; Z96.652 Presence of left artificial knee joint; Z87.891 Personal history of nicotine dependence; Z88.0 Allergy status to penicillin; Z88.7 Allergy status to serum and vaccine
CPT/HCPCS: 99284; 70450; 80053; 85025; 93005

== ENCOUNTER → 2024-07-03 10:16 | Outpatient (REF) | payer MEDICARE, OTHER, SELFPAY | LOC: RCS 10:16 | PROVIDERS: ATTENDING PHYSICIAN Physician Assistant | DX: R42 Dizziness and giddiness (principal); R00.1 Bradycardia, unspecified; I48.0 Paroxysmal atrial fibrillation; I34.0 Nonrheumatic mitral (valve) insufficiency | CPT/HCPCS: 93306 ==

== ENCOUNTER 2024-07-10 06:51 | Outpatient (RCR) | payer MEDICARE, OTHER, SELFPAY | END 2024-07-10 23:59 | disposition home or self-care (01) | LOC: RPT 06:51 | PROVIDERS: ATTENDING PHYSICIAN Physician Assistant | DX: R42 Dizziness and giddiness (principal); Z73.6 Limitation of activities due to disability | CPT/HCPCS: 97112; 97162 ==

== ENCOUNTER 2024-08-08 14:05 | Outpatient (RCR) | payer MEDICARE, OTHER, SELFPAY | END 2024-08-09 05:42 | disposition home or self-care (01) | LOC: RPT 14:05 | PROVIDERS: ATTENDING PHYSICIAN Physician Assistant | DX: R42 Dizziness and giddiness (principal); Z73.6 Limitation of activities due to disability | CPT/HCPCS: 97112 ==

== ENCOUNTER → 2024-11-06 11:21 | Outpatient (REF) | payer MEDICARE, OTHER, SELFPAY ==
[2024-11-06 12:38] LABS: % Immature Granulocytes 0.4 % (0-0.5); % Lymphocytes 31.5 % (20.5-51.1); % Monocytes 8.5 % (1.7-9.3); % Neutrophils 58.6 % (42.2-75.2); Absolute Basophils 0.1 10^3/uL (0-0.2); Absolute Lymphocytes 2.9 10^3/uL (1.2-3.4); Absolute Monocytes 0.8 10^3/uL (0.1-0.6); Absolute Neutrophils 5.4 10^3/uL (1.4-6.5); Hematocrit 41.7 % (39.0-52.0); Hemoglobin 14.2 g/dL (13.0-18.0); Mean Corp Hgb Conc. 34.1 g/dL (33.0-37.0); Mean Corpuscular Volume 93.9 fL (80.0-94.0); Mean Platelet Volume 9.4 fL (7.4-10.4); Nucleated Red Blood Cells % 0 % (-); Platelet Count 236 10^3/uL (130-400); Red Blood Cell Count 4.44 10^6/uL (4.70-6.10); Red Cell Dist. Width 13.6 % (11.5-14.5); White Blood Cell Count 9.2 10^3/uL (4.8-10.8)
[2024-11-06 12:55] LABS: ALT (SGPT) 31 U/L (0-50); AST (SGOT) 24 U/L (17-59); Albumin 4.2 g/dl (3.5-5.0); Alkaline Phosphatase 71 U/L (38-126); Blood Urea Nitrogen 19 mg/dl (9-20); Calcium 8.9 mg/dl (8.4-10.2); Carbon Dioxide 24 mmol/L (22-30); Chloride 113 mmol/L (98-107); Glucose 105 mg/dl (70-99); HDL Cholesterol 76 mg/dl; LDL Cholesterol, Calculated 95 mg/dl; Potassium 4.6 mmol/L (3.5-5.1); Sodium 141 mmol/L (135-145); Total Bilirubin 0.7 mg/dl (0.2-1.3); Total Cholesterol 181 mg/dl (50-199); Total Protein 6.8 g/dl (6.3-8.2); Triglyceride 52 mg/dl (10-149); Very Low Density Lipoprotein 10 mg/dl (0-30); eGFR > 60.00
[2024-11-06 13:24] LABS: TSH 3.76 uIU/ml (0.47-4.68)
[2024-11-06 19:02] LABS: Folate 17.8 ng/ml (2.76-20); Vitamin B12 546 pg/ml (239-931)
[2024-11-07 12:15] LABS: Lyme Antibody Screen, EIA Negative (Negative)
[2024-11-08 12:15] LABS: Syphilis/T. pallidum Ab Reflex Negative (Negative)
== END ==
LOC: REG 11:21
PROVIDERS: ATTENDING PHYSICIAN Family Medicine
DX: E78.5 Hyperlipidemia, unspecified (principal); I48.91 Unspecified atrial fibrillation; N40.0 Benign prostatic hyperplasia without lower urinary tract symptoms; I10 Essential (primary) hypertension; I65.23 Occlusion and stenosis of bilateral carotid arteries; E66.09 Other obesity due to excess calories; Z68.33 Body mass index [BMI] 33.0-33.9, adult; E66.811 Obesity, class 1; R41.3 Other amnesia
CPT/HCPCS: 36415; 80053; 80061; 82607; 82746; 84443; 85025; 86618; 86780

== ENCOUNTER 2025-01-05 12:13 | Emergency (ER) | payer MEDICARE, OTHER, SELFPAY ==
[2025-01-05 12:24] VITALS: BP 118/79
--- NOTE | 2025-01-05 14:52 | ED.GENMED ---
History of Present Illness
General
Chief Complaint: Musculo-Skeletal Complaint
Source: patient
Exam Limitations: none
Time Seen by Provider: 01/05/25 13:34
History of Present Illness
History of Present Illness:
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 reports patient has been using his right arm lifting branches of a tree that fell on his ground this week and now
complains of right shoulder pain. Pt reports pain occurs with movement of right arm/shoulder .
no trauma. Has been taking Tylenol and Motrin. Only took Tylenol today.
No fever chills no chest pain no shorthes of breath.
Past History
Past History
ED Past Medical History: Arrthythmia (Atrial fib), HTN, Hypercholesterolemia and Other (Dizziness, Constipation, )
ED Past Surgical History: Cardiac (Cardiac ablation), Orthopedic (Left knee replacement), Tonsilectomy and Other (Sinus surgery)
Patient has exhibited threatening behavior?: No
PSI?: No
Social History
Tobacco: Former smoker
Alcohol: Occasional
Drug: None
Personal:
Living: with family
Employment: Employed
Family History
Family History: Other (reviewed and noncontributory)
Phy Exam
General Physical Exam
General Presentation: well appearing
General age: appears stated age
General Skin: warm and dry
General Habitus: normal
General Mental: alert
General Hydration: appears well hydrated
Neurological Exam
Neurological Exam: alert and oriented x3
Musculoskeletal Exam
Musculoskeletal Exam: other (Normal inspection to right shoulder no erythema swelling distal pulses normal sensation pain with full abduction mildly tender to proximal shoulder region)
Skin Exam
Skin Exam: normal color and warm/dry
Psychiatric Exam
Psychiatric Exam: normal mood/affect
Course
Orders/Labs/Results
Orders:
Orders
01/05/25 12:15
CR Shoulder, Trauma - Right Urgent
Comment:
Reason For Exam: pain
01/05/25 14:49
Ibuprofen [Motrin] 400 mg PO NOW STA
Lidocaine [Lidocaine 4% Patch] 1 patch TOPICAL NOW STA
Apply Lidocaine patch(s) to:: right shoulder
01/05/25 14:59
Sling Right-Treatment ONCE
Vital Signs
Initial and Last Documented VS:
Initial Vital Signs
Temp Pulse Resp BP Pulse Ox
97.9 F 69 16 118/79 97
01/05/25 12:24 01/05/25 12:24 01/05/25 12:24 01/05/25 12:24 01/05/25 12:24
Last Documented Vital Signs
Temp Pulse Resp BP Pulse Ox
97.9 F 69 16 118/79 97
01/05/25 12:24 01/05/25 12:24 01/05/25 12:24 01/05/25 12:24 01/05/25 14:54
MDM/Problems Addressed
Differential Diagnosis Includes:
Not limited to shoulder sprain strain rotator cuff injury tendinitis overuse
MDM/Problems Addressed:
Symptoms are consistent with overuse injury no fx will d/c w/ sling/ice and ortho follow up
*Radiology
Radiology exam reviewed: preliminary read by ED provider (No obvious fracture symptoms findings consistent possible calcific tendinitis)
*Pulse Oximetry
SaO2: 97
Oxygen Mode of Delivery: Room air
Patient hypoxic: no
*Critical Care Note
Total Time (30-74mins, 75-104mins- exclusive of procedures): Not Applicable
ED Attending Note
-
Portions of this chart may have been created with voice recognition software.� Occasional wrong word or��sound alike� substitutions may have occurred due to the inherent limitations of voice recognition software.
Discharge Plan
Departure
Patient Disposition: Home (Routine Discharge)
Date of Disposition: 01/05/25
Time of Disposition: 14:59
Patient with high blood pressure during this ER visit?: No
Condition: Fair
Covid-19: Not Applicable
Discharge Problem:
Acute shoulder pain
Instructions: How to Use a Shoulder Sling, Shoulder pain - ED discharge instructions
Prescriptions:
No Action
aspirin 325 mg Tablet
325 mg PO HS
simvastatin [Zocor] 40 mg tablet
40 mg PO HS
doxazosin [Cardura] 2 mg tablet
2 mg PO HS
cetirizine 10 mg Tablet
10 mg PO DAILYPRN PRN (Reason: allergies)
therapeutic multivitamin Tablet
1 tab PO DAILY
polyethylene glycol 3350 [HealthyLax] 17 gram powder in packet
17 g PO DAILYPRN PRN (Reason: constipation)
losartan 25 mg Tablet
50 mg PO DAILY Qty: 30 0RF
docusate sodium 100 mg Capsule
100 mg PO BID Qty: 30 0RF
Referrals:
Ashkan Vargas MD [Family Provider, Family Practice]
Wayne Witt MD [Active, Orthopedics]
Activity Restrictions/Additional Instructions:
As discussed wear sling for support during the day but remove at night while sleeping. You may ice over the affected area and alternate between Tylenol and ibuprofen. Try and remove sling and do gentle range of motion exercises several times a
day. Call orthopedics tomorrow to make an appointment for reevaluation the next several days return if any worsening of symptoms.
Interventions
Interventions:
*Risk Screen - Suicide Last Done: 01/05/25 12:25
*General Assessment Last Done: 01/05/25 14:12
*Neglect/Abuse Screening Last Done: 01/05/25 12:25
*ED- Fall Risk Assessment Last Done: 01/05/25 14:12
*ED COVID-19 Vaccine History Last Done: 01/05/25 14:12
*Nursing Disposition Last Done: 01/05/25 15:05
ED-Musculoskeletal Assessment Last Done: 01/05/25 14:12
Discharge Date and Time
Discharge Date/Time: 01/05/25 15:57
Print Language: SLOVENIAN
[2025-01-05] MEDS: MOTRIN 400 MG PO (15:03)
[2025-01-05] MEDS: LIDOCAINE 4% PATCH 1 PATCH TOPICAL (15:04)
== END 2025-01-05 15:57 | disposition home or self-care (01) ==
LOC: EMR 12:13
PROVIDERS: EMERGENCY PHYSICIAN Emergency Medicine; FAMILY PHYSICIAN Family Medicine
DX: M25.511 Pain in right shoulder (principal); I48.91 Unspecified atrial fibrillation; I10 Essential (primary) hypertension; E78.00 Pure hypercholesterolemia, unspecified; Z87.891 Personal history of nicotine dependence; Z96.652 Presence of left artificial knee joint
CPT/HCPCS: 99283; 73030

== ENCOUNTER → 2025-04-08 11:04 | Outpatient (REF) | payer MEDICARE, OTHER, SELFPAY ==
[2025-04-08 12:15] LABS: Hematocrit 44.4 % (39.0-52.0); Hemoglobin 14.9 g/dL (13.0-18.0); Mean Corp Hgb Conc. 33.6 g/dL (33.0-37.0); Mean Corpuscular Volume 96.1 fL (80.0-94.0); Nucleated Red Blood Cells % 0 % (-); Platelet Count 239 10^3/uL (130-400); Red Cell Dist. Width 13.2 % (11.5-14.5)
[2025-04-08 13:04] LABS: ALT (SGPT) 29 U/L (0-50); AST (SGOT) 26 U/L (17-59); Albumin 4.0 g/dl (3.5-5.0); Alkaline Phosphatase 77 U/L (38-126); Blood Urea Nitrogen 13 mg/dl (9-20); Calcium 9.5 mg/dl (8.4-10.2); Carbon Dioxide 27 mmol/L (22-30); Chloride 105 mmol/L (98-107); Glucose 92 mg/dl (70-99); Potassium 4.4 mmol/L (3.5-5.1); Sodium 136 mmol/L (135-145); Total Protein 7.0 g/dl (6.3-8.2); eGFR > 60.00
== END ==
LOC: REG 11:04
PROVIDERS: ATTENDING PHYSICIAN Dermatology; FAMILY PHYSICIAN Family Medicine
DX: D89.89 Other specified disorders involving the immune mechanism, not elsewhere classified (principal)
CPT/HCPCS: 36415; 80053; 82565; 85025

== ENCOUNTER 2025-05-14 20:51 | Emergency (ER) | payer MEDICARE, OTHER, SELFPAY ==
[2025-05-14 20:58] VITALS: BP 152/69
[2025-05-14 21:35] LABS: Hematocrit 47.3 % (39.0-52.0); Hemoglobin 16.6 g/dL (13.0-18.0); Mean Corp Hgb Conc. 35.1 g/dL (33.0-37.0); Mean Corpuscular Volume 92.7 fL (80.0-94.0); Nucleated Red Blood Cells % 0 % (-); Platelet Count 194 10^3/uL (130-400); Red Cell Dist. Width 13.0 % (11.5-14.5)
[2025-05-14 21:44] LABS: COVID-19 Antigen Negative (Negative)
[2025-05-14 21:49] LABS: ALT (SGPT) 27 U/L (0-50); AST (SGOT) 31 U/L (17-59); Albumin 4.3 g/dl (3.5-5.0); Alkaline Phosphatase 93 U/L (38-126); Blood Urea Nitrogen 19 mg/dl (9-20); Calcium 9.2 mg/dl (8.4-10.2); Carbon Dioxide 23 mmol/L (22-30); Chloride 100 mmol/L (98-107); Glucose 108 mg/dl (70-99); Potassium 4.3 mmol/L (3.5-5.1); Sodium 130 mmol/L (135-145); Total Protein 7.7 g/dl (6.3-8.2); eGFR > 60.00
[2025-05-14 23:46] VITALS: BP 139/95
[2025-05-15] VITALS: BP 150/90
[2025-05-15 00:06] VITALS: BMI 31.2
[2025-05-15 01:00] VITALS: BP 132/76
[2025-05-15 02:00] VITALS: BP 124/58
[2025-05-15] MEDS: TAMIFLU 75 MG PO (02:21)
[2025-05-15] MEDS: OFIRMEV 100 IV (02:21)
[2025-05-15] MEDS: DUONEB 3 ML INH (02:21)
--- NOTE | 2025-05-15 02:36 | ED.GENMED ---
History of Present Illness
General
Chief Complaint: Breathing Problem
Source: patient and spouse
Time Seen by Provider: 05/14/25 23:49
History of Present Illness
History of Present Illness:
Note:
CHIEF COMPLAINT(S)
Sore throat, positive influenza test, and elevated heart rate noted by family doctor.
HISTORY OF PRESENT ILLNESS
The patient is an 85-year-old male who presents with symptoms that began yesterday, primarily a sore throat. He was seen by his family doctor who identified a rapid heart rate and diagnosed him with influenza after a positive test. The patient
reports feeling tired, which is acknowledged as a potential result of the flu. While the concern was for atrial fibrillation (A-Fib), the patients early electrocardiogram appeared to show a normal sinus rhythm with occasional extra beats, rather
than A-Fib.
The patients respiratory status is stable, as he reports being able to breathe without much discomfort, although coughing occurs with each breath. There is an absence of lung problems such as COPD or asthma reported, and no current respiratory
distress was observed.
The patient has a significant smoking history but quit years ago. A fever was noted during the examination with a recorded temperature of 102.6�F. Physical examination revealed scattered breath sounds with mild rattling upon auscultation.
EXTERNAL RECORDS REVIEWED
The patient reportedly tested positive for influenza at the family doctors office.
SOCIAL HISTORY
The patient has a history of smoking but ceased smoking years ago.
PHYSICAL EXAM
General: Alert, no acute distress.
Skin: Warm, dry.
Head: Normocephalic, atraumatic.
Neck: Supple, trachea midline.
Eye Ears, nose, mouth and throat: Oral mucosa moist.
Cardiovascular: Heart regular without murmur. Rate was noted as fast by family doctor, currently stable.
Respiratory: Breath sounds scattered bilaterally, with mild rattling upon auscultation, no labored respirations observed.
Gastrointestinal: Abdomen nondistended.
Back: Normal range of motion, normal alignment.
Musculoskeletal: Normal range of motion, normal strength.
Neurological: Alert and oriented to person, place, time, and situation, no focal neurological deficit observed.
Psychiatric: Cooperative, appropriate mood & affect.
PROBLEM LIST
Acute:
- Positive influenza test.
- Elevated heart rate noted by family physician.
- Fever with a documented temperature of 102.6�F.
- Sore throat.
- Cough associated with breathing.
PLAN
- Initiate antiviral medication to address influenza.
- Administer a breathing treatment to open the lungs and relieve respiratory symptoms.
- Provide intravenous fluids to aid in hydration and potentially alleviate fever.
DIFFERENTIAL DIAGNOSIS
The Differential Diagnosis includes, in no particular order and is not limited to:
1. Influenza
2. Atrial fibrillation (historical concern)
3. Upper respiratory tract infection
4. Pneumonia
5. COVID-19
6. Chronic obstructive pulmonary disease exacerbation (despite no known prior history)
7. Heart failure
8. Viral pharyngitis
9. Acute bronchitis
10. Bacterial infection (secondary to influenza)
EKG
My independent EKG interpretation is:
- Rhythm: Sinus rhythm
- Heart Rate: 113 bpm
- Lisman: Normal
- ST Segment Changes: No significant changes noted
- Additional Details: No Q wave abnormalities observed
Disposition:
SUMMARY OF ENCOUNTER
An 85-year-old male presented to the emergency department with a runny nose, cough, generalized fatigue, and elevated heart rate noted by his family doctor. The patients noted decreased appetite. Concerns were raised about potential atrial
fibrillation, but an EKG from the family doctors office revealed sinus rhythm without A-Fib. CBC results showed a white blood cell count of 11,000, while other chemistries were normal. A chest x-ray was unremarkable. The patient was observed,
showing an oxygen saturation of 92-95%. He was not in respiratory distress and received a Duoneb treatment with some improvement. Fever control was achieved, and the patient expressed a preference to return home, which was considered reasonable
given his improved condition.
DISPOSITION
Discharge.
ASSESSMENT
1. Positive influenza test.
2. Elevated heart rate (likely secondary to influenza and fever).
3. Viral upper respiratory tract infection.
EMERGENCY TREATMENTS ADMINISTERED
- Duoneb (ipratropium bromide with albuterol sulfate) for respiratory symptoms.
- Intravenous fluids to aid hydration and fever control.
REASSESSMENT
The patients condition improved after treatment, with maintained normal respiratory rate, improved symptoms, and stable vitals.
PLAN
- Discharge the patient with a short course of oseltamivir for influenza.
- Continue with inhaled albuterol sulfate given his history of smoking and to alleviate respiratory symptoms.
INDEPENDENT REVIEW OF LABS AND INTERPRETATION OF TESTS
My independent review of the CBC indicates a white blood cell count of 11,000, suggesting leukocytosis.
My independent chest x-ray interpretation is unremarkable with no signs of pneumonia.
PATIENT EDUCATION AND COUNSELING
The patient was informed about the management of influenza and the importance of staying hydrated and monitoring for any worsening symptoms, specifically respiratory distress or sustained high fever. The need to follow up with his primary care
physician was stressed.
FOLLOW-UP INSTRUCTIONS
The patient should follow up with his primary care physician for further management and monitoring of his symptoms.
MEDICATION RECONCILIATION
- Oseltamivir: Prescribed for influenza treatment.
- Albuterol: Recommended for respiratory symptom relief due to past smoking history.
MEDICAL DECISION MAKING
- Complexity of Data Reviewed: Chronic conditions affecting care include the past history of smoking. Differential Diagnosis includes influenza, sinus tachycardia secondary to fever or viral infection, upper respiratory tract infection, and
consideration for A-Fib, although EKG showed sinus rhythm.
- Data:
Category 1:
Non-emergency department records reviewed regarding prior EKG from the family doctors office confirming normal sinus rhythm.
Category 2:
My independent interpretation of the EKG confirmed sinus rhythm without A-Fib. Independent chest x-ray interpretation was unremarkable.
-Risk: Prescription medication was prescribed due to the diagnosis of influenza and consideration for respiratory symptoms resulting from patient�s smoking history.
DIAGNOSIS
1. Influenza, unspecified (ICD-10: J11.1)
2. Viral upper respiratory tract infection, unspecified (ICD-10: J06.9)
3. Tachycardia, unspecified (ICD-10: R00.0)
Past History
Past History
ED Past Medical History: Arrthythmia (Atrial fib), HTN, Hypercholesterolemia and Other (Dizziness, Constipation, )
ED Past Surgical History: Cardiac (Cardiac ablation), Orthopedic (Left knee replacement), Tonsilectomy and Other (Sinus surgery)
Patient has exhibited threatening behavior?: No
PSI?: No
Social History
Tobacco: Former smoker
Alcohol: Occasional
Drug: None
Personal:
Living: with family
Employment: Employed
Family History
Family History: Other (reviewed and noncontributory)
Phy Exam
Physical Exam
Physical Exam:
.
Scores
Heart Failure Risk
Heart Failure Risk Score: Not Applicable
Course
Orders/Labs/Results
Orders:
Orders
05/14/25 20:52
Electrocardiogram (*1) Urgent
Reason for Study: Atrial Fibrillation
EKG- Treatment ONCE
05/14/25 21:02
CR Chest - 2 Views Urgent
Comment:
Reason For Exam: respiratory distress
05/14/25 21:06
COVID-19 Antigen Urgent
Source: Nasal Swab
Influenza A+B Rapid Molecular Urgent
RANJANA Source: Nasal Swab
Specimen Description:
05/14/25 21:10
Complete Blood Count/With Diff Urgent
Comprehensive Metabolic Panel Urgent
NT-proBNP Urgent
05/15/25 00:12
Oxygen Therapy [O2 Therapy] [RESP] Urgent
Titrate/Wean O2 to maintain O2 sat greater than (%): 92
05/15/25 01:43
Acetaminophen 1000MG/100Ml [Ofirmev] 1,000 mg in 100 ml IV ONCE
Acetaminophen IV Indication:: ED Narcotic Naive Pt-ONCE
Ipratropium/Albuterol Sulfate [Duoneb] 3 ml INH R NOW STA
Oseltamivir Phosphate [Tamiflu] 75 mg PO NOW STA
05/15/25 03:16
0.9% Sodium Chloride 500 ml [Nss] 500 ml IV BOLUS
Abnormal Lab Results
05/14/25
21:10
WBC 11.3 H 10^3/uL
(4.8-10.8)
MCH 32.5 H pg
(27.0-31.0)
Absolute Neuts (auto) 8.4 H 10^3/uL
(1.4-6.5)
Absolute Monos (auto) 1.1 H 10^3/uL
(0.1-0.6)
Lymphocytes % 15.4 L %
(20.5-51.1)
Monocytes % 9.4 H %
(1.7-9.3)
Sodium 130 L mmol/L
(135-145)
Glucose 108 H mg/dl
(70-99)
05/14/25 21:10
05/14/25 21:10
Vital Signs
Initial and Last Documented VS:
Initial Vital Signs
Temp Pulse Resp BP Pulse Ox
98.3 F 66 18 152/69 95
05/14/25 20:58 05/14/25 20:58 05/14/25 20:58 05/14/25 20:58 05/14/25 20:58
Last Documented Vital Signs
Temp Pulse Resp BP Pulse Ox
102.5 F H 105 23 124/58 96
05/15/25 02:00 05/15/25 02:30 05/15/25 02:30 05/15/25 02:00 05/15/25 02:37
*Pulse Oximetry
SaO2: 93
Oxygen Mode of Delivery: Room air
Patient hypoxic: yes (mild)
*Job Recruiter Interpretation
Rate: normal
Interpretation: normal
Rhythm: sinus
*Critical Care Note
Total Time (30-74mins, 75-104mins- exclusive of procedures): Not Applicable
ED Attending Note
-
Portions of this chart may have been created with voice recognition software.� Occasional wrong word or��sound alike� substitutions may have occurred due to the inherent limitations of voice recognition software.
Discharge Plan
Departure
Patient Disposition: Home (Routine Discharge)
Date of Disposition: 05/15/25
Time of Disposition: 04:05
Patient with high blood pressure during this ER visit?: No
Discharge Problem:
Influenza
Instructions: Flu
Prescriptions:
New
prednisone 10 mg Tablet
See Rx Instructions .ROUTE .COMPLEX Qty: 30 0RF
Rx Instructions:
Take By Mouth:
40 mg daily x3 days, 30 mg daily x3 days,
20 mg daily x3 days, 10 mg daily x3 days.
albuterol sulfate [Ventolin HFA] 90 mcg/actuation HFA aerosol inhaler
2 puff inhalation Q6H PRN (Reason: shortness of breath or wheezing) Qty: 6.7 0RF
oseltamivir [Tamiflu] 75 mg capsule
75 mg PO BID 5 Days Qty: 10 0RF
No Action
aspirin 325 mg Tablet
325 mg PO HS
simvastatin [Zocor] 40 mg tablet
40 mg PO HS
doxazosin [Cardura] 2 mg tablet
2 mg PO HS
cetirizine 10 mg Tablet
10 mg PO DAILYPRN PRN (Reason: allergies)
therapeutic multivitamin Tablet
1 tab PO DAILY
polyethylene glycol 3350 [HealthyLax] 17 gram powder in packet
17 g PO DAILYPRN PRN (Reason: constipation)
losartan 25 mg Tablet
50 mg PO DAILY Qty: 30 0RF
docusate sodium 100 mg Capsule
100 mg PO BID Qty: 30 0RF
Referrals:
Ashkan Vargas MD [Family Provider, Family Practice]
Activity Restrictions/Additional Instructions:
Please use albuterol every 4-6 hours for the next 48 hours and can use Tylenol as discussed for fever control. Drink plenty of fluids. Please see your doctor in the next 3 days for follow-up and reevaluation. Return immediately for intractable
vomiting, difficulty breathing, changes in mentation or any other concerns. Please use humidifier or open the window to allow cool moist air in the room at night.
Interventions
Interventions:
*Risk Screen - Suicide Last Done: 05/14/25 20:58
*Neglect/Abuse Screening Last Done: 05/14/25 20:58
*ED COVID-19 Vaccine History Last Done: 05/15/25 00:06
*ED Influenza Vaccine History Last Done: 05/15/25 00:06
[facility] Fall Risk Assessment Tool Last Done: 05/15/25 00:06
ED- Cardiac Assessment Last Done: 05/15/25 00:22
ED- Pulmonary Assessment Last Done: 05/15/25 00:22
Discharge Date and Time
Print Language: MALTESE
[2025-05-15 03:00] VITALS: BP 108/61
[2025-05-15] MEDS: NSS 500 IV (03:27)
[2025-05-15 04:00] VITALS: BP 111/68
[2025-05-15 05:00] VITALS: BP 102/66
== END 2025-05-15 05:15 | disposition home or self-care (01) ==
LOC: EMR 20:51
PROVIDERS: EMERGENCY PHYSICIAN Emergency Medicine; FAMILY PHYSICIAN Family Medicine
DX: J10.1 Influenza due to other identified influenza virus with other respiratory manifestations (principal); I48.91 Unspecified atrial fibrillation; I10 Essential (primary) hypertension; E78.00 Pure hypercholesterolemia, unspecified; Z87.891 Personal history of nicotine dependence; Z96.652 Presence of left artificial knee joint
CPT/HCPCS: 99284; 96374; 71046; 80053; 83880; 85025; 87502; 87811; 93005

== ENCOUNTER 2025-06-01 17:12 | Emergency (ER) | payer MEDICARE, OTHER, SELFPAY ==
[2025-06-01 17:29] VITALS: BP 124/99
[2025-06-01 18:20] LABS: Urine Character Clear (Clear)
[2025-06-01 19:05] LABS: Urine Squamous Cell 0-2 /LPF (Few)
[2025-06-01 19:06] LABS: Urine White Cell 0-2 /HPF (0-5)
--- NOTE | 2025-06-01 19:30 | ED.GENMED ---
History of Present Illness
General
Chief Complaint: Abdominal Symptoms
Source: patient, spouse and family
Time Seen by Provider: 06/01/25 19:11
History of Present Illness
History of Present Illness:
85-year-old male presents emergency department with a 3-day history of inability to urinate or defecate. He has been constantly going back and forth to the bathroom trying to do so but unable to. His also noted a small amount of blood at his
penis. He is not on any form of anticoagulation. He denies fever, chills, chest pain, shortness of breath, abdominal pain, vomiting. He did have mild nausea. Patient does not have a sense of fullness in his rectum at this time. He denies any
other complaints.
Past History
Past History
ED Past Medical History: Arrthythmia (Atrial fib), HTN, Hypercholesterolemia and Other (Dizziness, Constipation, )
ED Past Surgical History: Cardiac (Cardiac ablation), Orthopedic (Left knee replacement), Tonsilectomy and Other (Sinus surgery)
Patient has exhibited threatening behavior?: No
PSI?: No
Social History
Tobacco: Former smoker
Alcohol: Occasional
Drug: None
Personal:
Living: with family
Employment: Employed
Family History
Family History: Other (reviewed and noncontributory)
Phy Exam
Physical Exam
Physical Exam:
GENERAL: Alert , in no apparent distress
EYE: pupils equal and reactive
NECK: Supple, no significant adenopathy.
ENT: o/p clr, mmm.
CARDIAC: Irregularly irregular, tachycardic
LUNGS: Clear breath sounds bilaterally, no acute respiratory distress,
ABDOMEN: Soft, without focal tenderness, no r/g, normal active bowel sounds
NEUROLOGICAL: Alert and oriented to person and place, cannot recall the president, no focal neuro deficits
SKIN: Warm and dry, skin intact.
MUSCULOSKELETAL: Trace bilateral lower extremity edema, well perfused.
PSYCH: Normal and appropriate interaction.
: Magallon in place, no blood noted around catheter, urine is blood tinged
Course
Orders/Labs/Results
Orders:
Orders
06/01/25 18:02
Catheter [Magallon Placement- Treatment] ONCE
Reason for insertion: Acute Retention
06/01/25 18:05
Urinalysis Reflex To Culture Urgent
Date Specimen was Collected: 06/01/25
Time Specimen was Collected: 18:02
Urine Microscopic Reflex Cult Urgent
06/01/25 19:31
Tamsulosin [Flomax] 0.4 mg PO NOW STA
Abnormal Lab Results
06/01/25
18:05
Urine Ketones 1+ A
(Negative)
Ur Occult Blood Reflex 3+ A
(Negative)
Urine RBC 11-15 A /HPF
(0-2)
Urine Albumin (Reflex) 1+ A
(Neg - Trace)
06/01/25 17:36
06/01/25 17:36
Vital Signs
Initial and Last Documented VS:
Initial Vital Signs
Temp Pulse Resp BP Pulse Ox
97.4 F 72 30 124/99 97
06/01/25 17:29 06/01/25 17:29 06/01/25 17:29 06/01/25 17:29 06/01/25 17:29
Last Documented Vital Signs
Temp Pulse Resp BP Pulse Ox
97.4 F 92 18 149/87 94
06/01/25 17:29 06/01/25 21:17 06/01/25 21:17 06/01/25 21:17 06/01/25 21:17
*Pulse Oximetry
SaO2: 97
Oxygen Mode of Delivery: Room air
Patient hypoxic: no
*Critical Care Note
Total Time (30-74mins, 75-104mins- exclusive of procedures): Not Applicable
Update Note
Update Note:
Patient presents to the Emergency Department with ____inability to urinate or defecate
Number and Complexity of Problems Addressed at the Encounter
� Chronic conditions affecting care:
� Acute Exacerbation and/or Progression of Chronic Illness:
� Differential Diagnosis includes: But not limited to constipation, urinary retention, UTI,, etc. etc.
Amount and/or Complexity of Data to be Reviewed and Analyzed
� I performed an independent evaluation of and my interpretation is:
EKG:
CT:
Xrays:
Laboratory Studies:
Other:
� Review of other/old records reveals:
� Clinical information was obtained by an independent historian:
� Prescriptions/Medications Considered but not given:
� Further testing considered but not performed:
Risk of Complications and/or Morbidity or Mortality of Patient Management
� Social determinants of health affecting care:
� Discussion with other providers (PCP, Hospitalists, Consultants, etc):
� Escalation of care including admission/observation vs risk of discharge considered: Patient noted to be in urinary retention here and a Magallon catheter was placed draining normally patient asymptomatic. The urine appears
blood-tinged and has blood noted on the UA without infection. Patient not on anticoagulation. Patient does not describe symptoms to suggest a kidney stone such as abdominal pain, flank pain, etc. Will need a workup with urology as an outpatient.
D/w family re:treatment for constipation, import of f/u and reasons to rted. Rectal performed, Kristie tech present, not impacted.
ED Attending Note
-
Portions of this chart may have been created with voice recognition software.� Occasional wrong word or��sound alike� substitutions may have occurred due to the inherent limitations of voice recognition software.
Discharge Plan
Departure
Patient Disposition: Home (Routine Discharge)
Date of Disposition: 06/01/25
Time of Disposition: 20:43
Patient with high blood pressure during this ER visit?: Yes
Condition: Good
Discharge Problem:
Acute urinary retention, Constipation, Hematuria
Instructions: Diarrhea in teens and adults, Blood in the urine (hematuria) in adults, Constipation in adults - ED (DC), BLOOD PRESSURE
Prescriptions:
New
tamsulosin 0.4 mg capsule
0.4 mg PO DAILY Qty: 30 0RF
No Action
aspirin 325 mg Tablet
325 mg PO HS
simvastatin [Zocor] 40 mg tablet
40 mg PO HS
doxazosin [Cardura] 2 mg tablet
2 mg PO HS
cetirizine 10 mg Tablet
10 mg PO DAILYPRN PRN (Reason: allergies)
therapeutic multivitamin Tablet
1 tab PO DAILY
polyethylene glycol 3350 [HealthyLax] 17 gram powder in packet
17 g PO DAILYPRN PRN (Reason: constipation)
losartan 25 mg Tablet
50 mg PO DAILY Qty: 30 0RF
docusate sodium 100 mg Capsule
100 mg PO BID Qty: 30 0RF
prednisone 10 mg Tablet
See Rx Instructions .ROUTE .COMPLEX Qty: 30 0RF
Rx Instructions:
Take By Mouth:
40 mg daily x3 days, 30 mg daily x3 days,
20 mg daily x3 days, 10 mg daily x3 days.
albuterol sulfate [Ventolin HFA] 90 mcg/actuation HFA aerosol inhaler
2 puff inhalation Q6H PRN (Reason: shortness of breath or wheezing) Qty: 6.7 0RF
oseltamivir [Tamiflu] 75 mg capsule
75 mg PO BID 5 Days Qty: 10 0RF
Referrals:
Ashkan Vargas MD [Family Provider, Family Practice]
Deshawn Farooq MD [Active, Urology] - Follow up in 2-3 days
Activity Restrictions/Additional Instructions:
IF YOU DEVELOP ABDOMINAL PAIN, VOMITING, BLEEDING, FEVER, CHILLS, THE CATHETER DOES NOT DRAIN, BACK PAIN, OR OTHER WORRISOME SIGNS, PLEASE RETURN TO THE ER IMMEDIATELY!
Interventions
Interventions:
*General Assessment Last Done: 06/01/25 17:29
*Neglect/Abuse Screening Last Done: 06/01/25 17:29
*ED COVID-19 Vaccine History Last Done: 06/01/25 21:17
*ED Influenza Vaccine History Last Done: 06/01/25 21:17
[facility] Fall Risk Assessment Tool Last Done: 06/01/25 21:18
*Risk Screen - Suicide (C-SSRS) Last Done: 06/01/25 17:29
*Nursing Disposition Last Done: 06/01/25 21:23
[facility] Assessment Last Done: 06/01/25 20:39
Discharge Date and Time
Discharge Date/Time: 06/01/25 21:23
Print Language: SPANISH
[2025-06-01] MEDS: FLOMAX 0.4 MG PO (20:09)
[2025-06-01 21:17] VITALS: BP 149/87
== END 2025-06-01 21:23 | disposition home or self-care (01) ==
LOC: EMR 17:12
PROVIDERS: EMERGENCY PHYSICIAN Emergency Medicine; FAMILY PHYSICIAN Family Medicine
DX: R33.9 Retention of urine, unspecified (principal); K59.00 Constipation, unspecified; R31.9 Hematuria, unspecified; I48.91 Unspecified atrial fibrillation; I10 Essential (primary) hypertension; E78.00 Pure hypercholesterolemia, unspecified; Z87.891 Personal history of nicotine dependence; Z96.652 Presence of left artificial knee joint
CPT/HCPCS: 99283; 51702; 81003; 81015